=== PATIENT | female | born 1955 | race Caucasian/White ===

== ENCOUNTER 2020-05-13 08:21 | Outpatient (REF) | payer OTHER, SELFPAY ==
--- NOTE | 2020-05-13 08:25 | MM_ITS ---
EXAMINATION: MM SCREENING DIGITAL BREAST TOMOSYNTHESIS, BILATERAL CLINICAL INFORMATION: Screening. Asymptomatic. The lifetime risk of breast cancer based on the Tyrer-Cuzick Model is 10%. COMPARISON: Mammography: 05/08/2019, 06/29/2016, 07/06/2015 TECHNIQUE: Digital breast tomosynthesis is performed in both the craniocaudal and mediolateral oblique views along with computer-aided detection (CAD). Synthesized 2D images are generated from the tomosynthesis. FINDINGS: There are scattered areas of fibroglandular density (ACR BI-RADS breast composition Category b). There are no significant masses, abnormal calcifications, or other abnormalities. Parenchymal pattern is similar to prior studies. No significant changes. MM/MM tomosynthesis screening BI IMPRESSION: No mammographic evidence of malignancy. ASSESSMENT: BI-RADS 1: Negative RECOMMENDATION: Routine annual mammography screening. This patient's information was entered into a reminder system with a target due date for their next mammogram.
== END 2020-05-13 08:22 | disposition home or self-care (01) ==
LOC: HO.MAMMO 08:21
PROVIDERS: Visit Provider Internal Medicine
DX: Z12.31 Encounter for screening mammogram for malignant neoplasm of breast (principal)
CPT/HCPCS: 77063; 77067

== ENCOUNTER 2021-04-23 09:40 | Outpatient (REF) | payer OTHER, SELFPAY ==
--- NOTE | ~2021-04-23 | XR_ITS ---
EXAMINATION: CR SACRUM AND COCCYX CLINICAL INFORMATION: Sacrococcygeal disorders, not elsewhere classified. COMPARISON: Lumbar spine films dated 05/23/2017. Sacroiliac joint films dated 05/23/2017. TECHNIQUE: 3 views of the sacrum and coccyx were obtained. FINDINGS: Evaluation of the sacrum is limited due to overlapping gas and stool filled loops of bowel. No definite acute fracture is seen. The coccyx is intact. Sacroiliac joints bilaterally are intact with mild sclerotic changes on the iliac side of the joints and minimal inferior spurring seen. Pubic symphysis is intact. Included portions of hip joints are unremarkable. Phleboliths are seen in the right lower pelvis. Scattered gas is seen throughout the small and large bowel. XR/XR sacrum coccyx min 2V IMPRESSION: No definite acute fracture of the sacrum or coccyx seen.
== END 2021-04-23 09:41 | disposition home or self-care (01) ==
LOC: HO.HMGCX 09:40
PROVIDERS: PCP Internal Medicine; Visit Provider Physician Assistant
DX: M53.3 Sacrococcygeal disorders, not elsewhere classified (principal)
CPT/HCPCS: 72220

== ENCOUNTER 2021-05-10 06:04 | Outpatient (REF) | payer OTHER, SELFPAY ==
[2021-05-10 11:48] LABS: MANUAL DIFF FLAG NO
[2021-05-10 11:50] LABS: Basophils Absolute Auto 0.1 X10*3/uL (0.0-0.2); Basophils Percent Auto 0.8 % (0-2); Eosinophils Absolute Auto 0.2 X10*3/uL (0.0-0.4); Hematocrit 42.1 % (37.0-47.0); Hemoglobin 13.7 g/dl (12.0-16.0); Imm Gran Abs Auto 0.02 X10*3/uL (0.00-0.03); Imm Gran Pct Auto 0.3 % (0.0-0.4); Lymphocytes Percent Auto 37.9 % (20-40); Mean Corpuscular HGB Conc 32.5 g/dl (31.0-35.0); Mean Corpuscular Hemoglobin 29.7 pg (27.0-33.0); Mean Corpuscular Volume 91.1 fL (80.0-98.0); Mean Platelet Volume 11.1 fL (9.4-12.3); Monocytes Absolute Auto 0.4 X10*3/uL (0.1-1.2); Monocytes Percent Auto 4.6 % (2-11); Neutrophils Absolute Auto 4.3 x10*3/uL (2.0-8.3); Neutrophils Percent Auto 54.4 % (45-73); Platelet Count 306 X10*3/uL (160-400); Red Blood Count 4.62 X10*6/uL (4.20-5.50); White Blood Count 7.9 X10*3/uL (4.8-10.8)
[2021-05-10 12:34] LABS: Alanine Aminotransferase 20 U/L (0-31); Alkaline Phosphatase 105 U/L (39-117); Anion Gap 15 (12-20); Aspartate Amino Transferase 17 U/L (5-31); Bilirubin Total 0.4 mg/dL (0.0-1.0); Blood Urea Nitrogen 7 mg/dL (9-16); Calcium 9.3 mg/dL (8.4-10.2); Carbon Dioxide 24 mmol/L (22-29); Chloride 108 mmol/L (96-108); Cholesterol 122 mg/dL; Estimated Glomerular Filt Rate > 60; Glucose Fasting 90 mg/dL (60-99); HDL Cholesterol 30 mg/dL; LDL Cholesterol Calculated 70 mg/dl; Potassium 4.5 mmol/L (3.3-5.1); Sodium 142 mmol/L (135-145); Total Protein 6.6 g/dL (6.5-8.0); Triglycerides 114 mg/dL
[2021-05-10 12:37] LABS: TSH reflex Free T4 1.53 uIU/mL (0.32-4.0)
== END 2021-05-10 06:05 | disposition home or self-care (01) ==
LOC: HO.HMGCLDS 06:04
PROVIDERS: PCP Internal Medicine; Visit Provider Internal Medicine
DX: E78.9 Disorder of lipoprotein metabolism, unspecified (principal); K59.01 Slow transit constipation; M54.50 Low back pain, unspecified; Z76.89 Persons encountering health services in other specified circumstances
CPT/HCPCS: 36415; 80053; 80061; 84443; 85025

== ENCOUNTER → 2021-05-13 11:18 | Outpatient (BNVA) | payer OTHER, SELFPAY | PROVIDERS: PCP Internal Medicine; Referring Provider Internal Medicine; Visit Provider Nurse Practitioner | DX: D12.6 Benign neoplasm of colon, unspecified (principal); K62.1 Rectal polyp; K57.90 Diverticulosis of intestine, part unspecified, without perforation or abscess without bleeding; E78.00 Pure hypercholesterolemia, unspecified; I25.10 Atherosclerotic heart disease of native coronary artery without angina pectoris; F17.210 Nicotine dependence, cigarettes, uncomplicated; Z80.0 Family history of malignant neoplasm of digestive organs; Z79.82 Long term (current) use of aspirin; Z79.899 Other long term (current) drug therapy | CPT/HCPCS: 99202 ==

== ENCOUNTER → 2021-07-19 12:50 | Outpatient (BNVA) | payer OTHER, SELFPAY | PROVIDERS: PCP Internal Medicine; Referring Provider Internal Medicine; Visit Provider Internal Medicine Cardiovascular Disease | DX: I25.10 Atherosclerotic heart disease of native coronary artery without angina pectoris (principal) | CPT/HCPCS: 93005; 99212 ==

== ENCOUNTER 2021-08-23 06:19 | Day surgery (SDC) | payer OTHER, SELFPAY ==
--- NOTE | 2021-08-22 11:50 | HO.ANESPROP2 ---
Documented by User: Daphney Cortez NP 08/22/21 11:52 HPI - Anesthesia Eval Consult details Narrative: 65yo F for Colonoscopy 06/2021 Routine cardiology visit - stable with PRN cardiac f/u only PMFSH Active Problems Active Problems: All Active Problems (Updated 07/19/21 @ 13:33 by Fredi Camilo MD) CAD (coronary artery disease) (Acute) Family history of colon cancer (Acute) Tubular adenoma of colon (Acute) Establishing care with new doctor, encounter for (Acute) Lipid disorder (Acute) Constipation by delayed colonic transit (Acute) Lower back pain (Acute) Past Medical History Medical History CAD (coronary artery disease) Lipid disorder Smoker Social History Social History Housing: House Patient Tobacco Use Status: Current everyday Tobacco user Tobacco use type: Cigarette Cigarette Packs Per Day: 1 Cigarettes Per Day: 20.0 Years Smoked: 30 years Use of substances other than those prescribed or required for medical reasons: No Advance Directives: No Advance Directives Information Provided: Yes Recently lost weight without trying: No Patient : No Current occupational status: unemployed Meds Allergies Allergy/AdvReac Type Severity Reaction Status Date / Time No Known Allergies Allergy Verified 05/13/21 11:40 Exam Exam Date and Time: August 22, 2021 1150 Narrative Narrative: EKG 06/2021 NSR Assessment and Plan Assessment Anesthesia Assessment: Chart Reviewed Documented by User: Ai Ledesma MD 08/23/21 07:18 PMFSH Past Medical History Medical History CAD (coronary artery disease) Lipid disorder Smoker Functional capacity: independent ambulation Patient : No Family History Family history of problems with anesthesia: No Surgical History History of Problems with Anesthesia: No Social History Social History Housing: House Patient Tobacco Use Status: Current everyday Tobacco user Tobacco use type: Cigarette Cigarette Packs Per Day: 1 Cigarettes Per Day: 20.0 Years Smoked: 30 years Use of substances other than those prescribed or required for medical reasons: No Advance Directives: No Advance Directives Information Provided: Yes Recently lost weight without trying: No Patient : No Current occupational status: unemployed Meds Allergies Allergy/AdvReac Type Severity Reaction Status Date / Time No Known Allergies Allergy Verified 05/13/21 11:40 Exam Airway Mallampati Class: II TM Dist: >3cm Neck ROM: Full Loose/Missing/Broken Teeth: Yes (2 upper incisores) Heart: RRR Lungs: CTA Assessment and Plan Final Anesthetic Review Family History of Problems with Anesthesia: No History of Problems with Anesthesia: No ASA Class: II Final Preanesthetic Review: No Changes in Pt Med Stat, Meds/Allgs Chart Reviewed, Consent Obtained/Reviewed and Anes Risks/Benef Reviewed Patient Risk: Low Procedure Risk: Low Anesthetic Plan Anesthetic Plan: MAC: Disposition: Standard PACU
[2021-08-23 06:32] VITALS: BP 137/87; PULSE 84; RESP 16; TEMP 36.8; O2SAT 96; BMI 22.1
[2021-08-23] MEDS: Lactated Ringers 1,000 ML 100 ML IVCONT (06:49)
--- NOTE | 2021-08-23 07:27 | P.HPSUR_ITS ---
Pre-Procedural Eval Section A Date of Service: 08/23/21 The patient is an INPATIENT: No The History & Physical has been completed within 30 days and I have reviewed it.: No Section B Chief Complaint: screening Details of Present Illness: Colon cancer screening, history of colon polyps family history of colon cancer Relevant Family History (Specify if Yes): Yes Relevant Social History: Tobacco Use Present Medications: see Short Stay Collaborative assessment Medical History: Significant History (Coronary artery disease, chronic c onstipation, low back pain) History of Previous Operations: Relevant previous surgery/procedure and date(s) (History of colonoscopy) Allergies: Allergies Allergy/AdvReac Type Severity Reaction Status Date / Time No Known Allergies Allergy Verified 05/13/21 11:40 Review of Systems Sugical H&P ROS: Negative: Constitution, Cardiovascular and Respiratory and Yes, Specify: Gastrointestinal (constipation) Exam Surgical H&P Exam: Normal: Heart, Normal: Lungs, Normal: Extremities and Normal: Abdomen Plan Diagnosis/Plan: Unchanged I have reviewed the history and physical and performed a pertinent physical examination on my patient. No changes have occurred unless specified.
--- NOTE | 2021-08-23 07:30 | W.PM.OPN ---
Operative Note Operative Note Date of Service: 08/23/21 Narrative: Pre-op diagnosis: Colon cancer screening, history of colon polyps, family history of colon cancer Post-op diagnosis:?other (Colon polyp, diverticulosis, hemorrhoids) Procedure: COLONOSCOPY TILL CECUM WITH BIOPSY Consent: Indications for the procedure and potential complications of bleeding, perforation, reaction to medications and missed diagnosis were discussed with the patient and informed consent was obtained. Instrument: Olympus PCF H 190 L variable stiffness pediatric colonoscope Monitoring: Vital signs and clinical assessment, intermittent blood pressure monitoring, continuous EKG monitoring, Pulse oximetry and Carbon Dioxide monitoring were done throughout the procedure. Colon withdrawl time was 16 minutes. Procedure: The patient was placed in the left lateral decubitis position and pre-procedure medications were administered. After a digital rectal examination of the ano-rectum, the video colonoscope was inserted into the rectum and advanced through the colon to the cecum. The colonoscope was slowly withdrawn in a retrograde panoramic fashion and the colon mucosa was carefully examined including a retroflexed view of the rectum. Findings and interventions are described below. Procedure Difficulty: Without difficulty Findings: Terminal Ileum: Not evaluated Cecum:? Normal Ascending Colon:? A 3-4 mm sessile polyp in mid AC removed with a cold bx Transverse Colon:? Normal Descending Colon:? Moderate diverticulosis Sigmoid Colon:? Severe diverticulosis with luminal narrowing Rectum:? Normal Ano-rectum:? Moderate internal hemorrhoids Colon preparation: Excellent ? Impression and Post Procedure Diagnosis: Colonoscopy Findings: One tiny polyp removed Moderate diverticulosis seen in the left colon Moderate hemorrhoids on retroflexed exam. Plan: Await pathology results Patient has an appointment on 09/19/21 in the GI Clinic with? Malena Cardenas NP. Repeat Colonoscopy interval based on path results - in 5 years if polyps are adenomatous and due to family hx of colon cancer. Above findings were reviewed with the patient and colon polyps and diverticulosis handouts were given in the discharge area Surgeon: Jonas Bacon MD Anesthesia:?MAC (Dr Weldon) Was an Delinquent Tax Collector used for this Procedure?:?Yes Delinquent Tax Collector:?Verito Souza Estimated blood loss (mL):?0 Pathology:?other (A. ascending colon polyp) Condition:?stable Disposition:?PACU
[2021-08-23 08:22] VITALS: BP 121/66; PULSE 66; RESP 16; TEMP 37.1; O2SAT 98
[2021-08-23 08:37] VITALS: BP 131/75; PULSE 67; RESP 18; TEMP 36.7; O2SAT 98
--- NOTE | 2021-08-23 12:25 | HO.POSTANES ---
Post Anesthesia Evaluation Post Anesthesia Evaluation Vital Signs: Vital Signs Temp Pulse Resp BP Pulse Ox 08/23/21 08:37 98.0 F 67 18 131/75 98 08/23/21 08:22 98.8 F 66 16 121/66 98 08/23/21 06:32 98.2 F 84 16 137/87 96 Anesthesia: Monitored Mental Status: Awake Pain Control: Satisfactory Nausea/Vomiting: None Hydration: Adequate Anesthesia-Related Issues: No Anes. Related Issues
== END 2021-08-23 09:02 | disposition home or self-care (01) ==
PROVIDERS: PCP Internal Medicine; Visit Provider Internal Medicine Gastroenterology
PROC: 0DJD8ZZ Inspection of Lower Intestinal Tract, Via Natural or Artificial Opening Endoscopic (ICD-10-PCS; CPT 45378; principal; 2021-08-23 07:30)
DX: Z12.11 Encounter for screening for malignant neoplasm of colon (principal); Z86.010 Personal history of colon polyps; Z80.0 Family history of malignant neoplasm of digestive organs; D12.2 Benign neoplasm of ascending colon; K57.30 Diverticulosis of large intestine without perforation or abscess without bleeding; K64.8 Other hemorrhoids; I25.10 Atherosclerotic heart disease of native coronary artery without angina pectoris; F17.210 Nicotine dependence, cigarettes, uncomplicated; E78.00 Pure hypercholesterolemia, unspecified
CPT/HCPCS: 45380; 88305

== ENCOUNTER 2021-09-06 07:50 | Outpatient (REF) | payer OTHER, SELFPAY ==
--- NOTE | ~2021-09-06 | MM_ITS ---
EXAMINATION: MM SCREENING DIGITAL BREAST TOMOSYNTHESIS, BILATERAL CLINICAL INFORMATION: Screening. Asymptomatic. The lifetime risk of breast cancer based on the Tyrer-Cuzick Model is 13%. COMPARISON: Mammography: 05/13/2020, 05/08/2019, 06/29/2016 TECHNIQUE: Digital breast tomosynthesis is performed in both the craniocaudal and mediolateral oblique views along with computer-aided detection (CAD). Synthesized 2D images are generated from the tomosynthesis. FINDINGS: There are scattered areas of fibroglandular density (ACR BI-RADS breast composition Category b). There are no significant masses, abnormal calcifications, or other abnormalities. Parenchymal pattern is similar to prior studies. There is no developing density or architectural abnormality. The axilla and skin contours are unremarkable. No significant changes. MM/MM tomosynthesis screening BI IMPRESSION: No mammographic evidence of malignancy. ASSESSMENT: BI-RADS 1: Negative RECOMMENDATION: Routine annual mammography screening. This patient's information was entered into a reminder system with a target due date for their next mammogram.
== END 2021-09-06 07:51 | disposition home or self-care (01) ==
LOC: HO.MAMMO 07:50
PROVIDERS: Visit Provider Internal Medicine
DX: Z12.31 Encounter for screening mammogram for malignant neoplasm of breast (principal)
CPT/HCPCS: 77063; 77067

== ENCOUNTER → 2021-09-30 10:16 | Outpatient (BNVA) | payer OTHER, SELFPAY | PROVIDERS: PCP Internal Medicine; Referring Provider Internal Medicine; Visit Provider Nurse Practitioner | DX: D12.6 Benign neoplasm of colon, unspecified (principal); Z80.0 Family history of malignant neoplasm of digestive organs | CPT/HCPCS: 99212 ==

== ENCOUNTER 2021-11-23 08:44 | Outpatient (REF) | payer MEDICARE, SELFPAY ==
[2021-11-26 13:02] LABS: HPV mRNA E6/E7 rflx Not Detected (Not Detected)
== END 2021-11-23 08:45 | disposition home or self-care (01) ==
LOC: HO.LAB 08:44
PROVIDERS: PCP Internal Medicine; Visit Provider Advanced Practice Midwife
DX: Z01.419 Encounter for gynecological examination (general) (routine) without abnormal findings (principal); Z11.51 Encounter for screening for human papillomavirus (HPV)
CPT/HCPCS: 87624; 88142

== ENCOUNTER 2022-02-01 06:02 | Outpatient (REF) | payer MEDICARE, SELFPAY ==
[2022-02-01 11:17] LABS: MANUAL DIFF FLAG NO
[2022-02-01 11:29] LABS: Basophils Absolute Auto 0.1 X10*3/uL (0.0-0.2); Basophils Percent Auto 0.8 % (0-2); Eosinophils Absolute Auto 0.2 X10*3/uL (0.0-0.4); Eosinophils Percent Auto 1.9 % (0-4); Hematocrit 43.1 % (37.0-47.0); Hemoglobin 14.2 g/dl (12.0-16.0); Imm Gran Abs Auto 0.03 X10*3/uL (0.00-0.03); Imm Gran Pct Auto 0.3 % (0.0-0.4); Lymphocytes Absolute Auto 3.9 X10*3/uL (1.2-4.9); Lymphocytes Percent Auto 42.4 % (20-40); Mean Corpuscular HGB Conc 32.9 g/dl (31.0-35.0); Mean Corpuscular Hemoglobin 30.5 pg (27.0-33.0); Mean Corpuscular Volume 92.7 fL (80.0-98.0); Mean Platelet Volume 10.6 fL (9.4-12.3); Monocytes Absolute Auto 0.5 X10*3/uL (0.1-1.2); Monocytes Percent Auto 4.9 % (2-11); Neutrophils Absolute Auto 4.6 x10*3/uL (2.0-8.3); Neutrophils Percent Auto 49.7 % (45-73); Platelet Count 334 X10*3/uL (160-400); Red Blood Count 4.65 X10*6/uL (4.20-5.50); Red Cell Distribution Width 14.3 % (11.0-16.0); White Blood Count 9.3 X10*3/uL (4.8-10.8)
[2022-02-01 11:51] LABS: Alanine Aminotransferase 26 U/L (0-31); Albumin Level 4.1 g/dL (3.5-5.0); Alkaline Phosphatase 104 U/L (39-117); Anion Gap 13 (12-20); Aspartate Amino Transferase 22 U/L (5-31); Bilirubin Total 0.4 mg/dL (0.0-1.0); Blood Urea Nitrogen 16 mg/dL (9-16); Calcium 9.4 mg/dL (8.4-10.2); Carbon Dioxide 23 mmol/L (22-29); Chloride 109 mmol/L (96-108); Cholesterol 141 mg/dL; Estimated Glomerular Filt Rate > 60; Glucose Fasting 102 mg/dL (60-99); HDL Cholesterol 42 mg/dL; LDL Cholesterol Calculated 75 mg/dl; Potassium 4.2 mmol/L (3.3-5.1); Sodium 141 mmol/L (135-145); Total Protein 6.8 g/dL (6.5-8.0); Triglycerides 124 mg/dL
[2022-02-01 12:13] LABS: TSH reflex Free T4 1.94 uIU/mL (0.32-4.0)
== END 2022-02-01 06:03 | disposition home or self-care (01) ==
LOC: HO.HMGCLDS 06:02
PROVIDERS: PCP Internal Medicine; Visit Provider Internal Medicine
DX: Z00.01 Encounter for general adult medical examination with abnormal findings (principal); I25.10 Atherosclerotic heart disease of native coronary artery without angina pectoris
CPT/HCPCS: 36415; 80053; 80061; 84443; 85025

== ENCOUNTER 2022-03-06 14:01 | Outpatient (REF) | payer MEDICARE, SELFPAY ==
--- NOTE | ~2022-03-06 | US_ITS ---
EXAMINATION: US VENOUS ULTRASOUND WITH DOPPLER LOWER EXTREMITY, LEFT CLINICAL INFORMATION: M79.605 - Pain in left leg. Assess for occult DVT. COMPARISON: None TECHNIQUE: Ultrasound of the deep veins is performed from the hip to the calf with compression sonography and color and pulse Doppler assessment. Spectral analysis with color-flow imaging is performed. FINDINGS: There is normal venous compression and respiratory variation and augmented flow. The visualized common femoral vein, superficial femoral vein, profunda femoral vein, popliteal vein, and the trifurcation region shows no evidence of deep venous thrombosis. No popliteal fossa cyst. At time of imaging, patient noted palpable concern lower lateral calf. Additional imaging targeted to this area demonstrates subtle nonspecific circumscribed spindle-shaped nodule measuring 1.2 x 0.3 x 1.0 cm. The lesion resides just beneath the skin with long axis parallel with the skin. No increased or decreased through transmission of sound. No associated color flow. US/US venous duplex LE IMPRESSION: -Patient notes palpable concern lower lateral calf. Ultrasound demonstrates nonspecific spindle-shaped nodule anterior superficial soft tissues measuring 1.2 x 0.3 x 1.0 cm. This could be further characterized with MRI without and with gadolinium contrast. -No DVT demonstrated in the left lower extremity.
== END 2022-03-06 14:02 | disposition home or self-care (01) ==
LOC: HO.US 14:01
PROVIDERS: PCP Internal Medicine; Visit Provider Internal Medicine
DX: M79.605 Pain in left leg (principal)
CPT/HCPCS: 93971

== ENCOUNTER → 2022-03-20 09:35 | Outpatient (BNVA) | payer MEDICARE, SELFPAY | PROVIDERS: PCP Internal Medicine; Visit Provider Physician Assistant | DX: D17.9 Benign lipomatous neoplasm, unspecified (principal) | CPT/HCPCS: 99202 ==

== ENCOUNTER 2022-09-12 07:36 | Outpatient (REF) | payer MEDICARE, SELFPAY ==
--- NOTE | ~2022-09-12 | MM_ITS ---
EXAMINATION: MM SCREENING DIGITAL BREAST TOMOSYNTHESIS, BILATERAL CLINICAL INFORMATION: Screening. Asymptomatic. The lifetime risk of breast cancer based on the Tyrer-Cuzick Model is 10%. COMPARISON: Mammography: 09/06/2021, 05/13/2020, 05/08/2019 TECHNIQUE: Digital breast tomosynthesis is performed in both the craniocaudal and mediolateral oblique views along with computer-aided detection (CAD). Synthesized 2D images are generated from the tomosynthesis. Additional right CC view is provided. FINDINGS: There are scattered areas of fibroglandular density (ACR BI-RADS breast composition Category b). There are no significant masses, abnormal calcifications, or other abnormalities. No architectural abnormality or developing density or significant change from prior studies. The axilla and skin contours are unremarkable. MM/MM tomosynthesis screening BI IMPRESSION: No mammographic evidence of malignancy. ASSESSMENT: BI-RADS 1: Negative RECOMMENDATION: Routine annual mammography screening. This patient's information was entered into a reminder system with a target due date for their next mammogram.
== END 2022-09-12 07:37 | disposition home or self-care (01) ==
LOC: HO.MAMMO 07:36
PROVIDERS: PCP Internal Medicine; Visit Provider Internal Medicine
DX: Z12.31 Encounter for screening mammogram for malignant neoplasm of breast (principal)
CPT/HCPCS: 77063; 77067

== ENCOUNTER 2022-10-19 06:05 | Outpatient (REF) | payer MEDICARE, SELFPAY ==
[2022-10-19 12:36] LABS: Alanine Aminotransferase 23 U/L (0-31); Alkaline Phosphatase 123 U/L (39-117); Anion Gap 12 (12-20); Aspartate Amino Transferase 20 U/L (5-31); Bilirubin Total 0.6 mg/dL (0.0-1.0); Blood Urea Nitrogen 9 mg/dL (9-16); Calcium 9.5 mg/dL (8.4-10.2); Carbon Dioxide 25 mmol/L (22-29); Chloride 110 mmol/L (96-108); Cholesterol 129 mg/dL; Estimated Glomerular Filt Rate > 60; Glucose Fasting 103 mg/dL (60-99); HDL Cholesterol 28 mg/dL; LDL Cholesterol Calculated 78 mg/dl; Potassium 4.6 mmol/L (3.3-5.1); Sodium 142 mmol/L (135-145); Total Protein 6.5 g/dL (6.5-8.0); Triglycerides 116 mg/dL
== END 2022-10-19 06:06 | disposition home or self-care (01) ==
LOC: HO.HMGCLDS 06:05
PROVIDERS: PCP Internal Medicine; Visit Provider Internal Medicine
DX: E78.9 Disorder of lipoprotein metabolism, unspecified (principal); I25.10 Atherosclerotic heart disease of native coronary artery without angina pectoris; R73.01 Impaired fasting glucose; F17.200 Nicotine dependence, unspecified, uncomplicated
CPT/HCPCS: 36415; 80053; 80061

== ENCOUNTER 2022-12-28 10:00 | Outpatient (REF) | payer MEDICARE, SELFPAY | END 2022-12-28 10:01 | disposition home or self-care (01) | LOC: HO.HMGCLDS 10:00 | PROVIDERS: PCP Internal Medicine; Visit Provider Internal Medicine | DX: E78.9 Disorder of lipoprotein metabolism, unspecified (principal); R79.89 Other specified abnormal findings of blood chemistry | CPT/HCPCS: 36415; 80076 ==

== ENCOUNTER 2023-01-05 08:56 | Outpatient (AMB) | payer MEDICARE, SELFPAY ==
--- NOTE | 2023-01-05 09:01 | MHC.OFFVIS ---
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 Scribed for FELIX Cerda by Areli Marie medical administrator, on 01/05/2023 at 9:15 am EST Casualty Claims Supervisor Required: No Information Interpreted: non-clinical & clinical Route Driver: Route Driver Present (Beverly) Allergies No Known Allergies Allergy (Verified 01/05/23 09:05) Is last menstrual period known: No Post menopausal: Yes HPI HPI Comments History of Present Illness Details She is a postmenopausal woman presenting for annual exam. Doing well with no certified health education specialist concerns. She attempts to eat a healthy diet including Calcium and Vitamin D. She stays active with swimming. Currently sexually active. Denies vaginal itching and irritation. STD screening offered; she declines. Family hx of breast cancer in sister and niece and colon cancer in father. Has not done genetic testing. Last pap smear 2021. Last mammogram 09/12/22. UTD on colonoscopy. Current everyday smoker, is not interested in quitting. PFSH Medical History CAD (coronary artery disease) Lipid disorder Smoker Surgical History H/O colonoscopy Hx of tubal ligation Family History Father Colon cancer Sister Breast cancer Family/Other Breast cancer Social History Housing: House Patient Tobacco Use Status: Current everyday Tobacco user Tobacco use type: Cigarette Cigarette Packs Per Day: 1 Cigarettes Per Day: 20.0 Years Smoked: 30 years e-Cigarette/Vaping Use: Never Used Current occupational status: unemployed Cognitive needs: No Hearing needs: No Vision needs: Yes Female Reproductive History Menstrual Age of Menarche: 13 control method: permanent sterilization Total pregnancies: 2 Full term: 2 Number of Living Children: 2 Date of last pap smear: 11/24/21 (negative) Date of Mammogram: 09/12/22 Review of Systems Const All systems reviewed & are unremarkable except as noted in HPI and below Physical Exam Vital Signs: Last Vital Signs BP 138/60 01/05/23 09:03 BMI result Body Mass Index 20.9 Const General: cooperative, healthy appearing, no acute distress, well developed and alert Orientation/consciousness: patient oriented x3 HEENT Head: Yes normal to inspection Eyes General: appearance normal, both eyes and all related structures Neck Neck: Yes normal visual inspection Thyroid: Thyroid normal Chest Chest palpation & inspection: normal inspection of the chest Breast/axilla inspection: normal inspection of the breasts (no puckering, dimpling, peau de orange, retraction, discharge, masses) Breast/axilla palpation: normal palpation of the breasts Resp Effort & Inspection: normal respiratory effort GI Inspection: Yes normal to inspection Palpation (GI): Soft to palpation Rectal Exam - Female: deferred General: Yes bladder normal to palpation External Female Exam: normal external appearance and normal appearance of the urethra Speculum Exam - Vagina: normal appearance of the vagina, normal palpation, normal vaginal discharge and vagina atrophic Speculum Exam - Cervix: normal appearance of the cervix, normal palpation and Other cervical findings present (atrophic changes) Bimanual exam- vagina & uterus: normal bimanual exam, normal palpation, uterine size normal, bladder normal to palpation and normal palpation Bimanual Exam- Adnexa, other: normal adnexae and no masses Skin General skin exam: no rashes or lesions noted Neuro General: patient oriented x3 Cognition (Neuro): normal cognition Extrem General: Yes normal to inspection Psych Attitude: cooperative Thought process: Normal thought process present Assessment & Plan Assessment & Plan (1) Encounter for well woman exam: Code(s): Z01.419 - Encounter for gynecological examination (general) (routine) without abnormal findings Plan: Discussed: Current recommendations for pap smears per ASCCP guidelines. Breast awareness and periodic self breast exams. Encouraged yearly mammograms. Maintaining a healthy lifestyle including a well balanced diet including Calcium and Vitamin D and routine exercise. Discussed BRCA testing, she is undecided at this time. Contact office with any PMB. All of her questions and concerns were addressed to the best of my ability. RTO in one year for AG. (2) Tobacco use: Code(s): Z72.0 - Tobacco use Plan: Encouraged cessation. Coding Level of Care Code Est Pt Prev Care >65y(76339) Diagnoses Encounter for well woman exam Z01.419 Tobacco use Z72.0
[2023-01-05 09:03] VITALS: BP 138/60; BMI 20.9
== END 2023-01-05 09:18 | disposition home or self-care (01) ==
LOC: HO.HWS 08:56
PROVIDERS: PCP Internal Medicine; Visit Provider Advanced Practice Midwife
DX: Z01.419 Encounter for gynecological examination (general) (routine) without abnormal findings (principal); Z72.0 Tobacco use
CPT/HCPCS: 99397

== ENCOUNTER → 2023-01-05 08:56 | Outpatient (BNVA) | payer MEDICARE, SELFPAY | PROVIDERS: PCP Internal Medicine; Visit Provider Advanced Practice Midwife ==

== ENCOUNTER 2023-04-30 06:02 | Outpatient (REF) | payer MEDICARE, SELFPAY ==
[2023-04-30 11:38] LABS: Alanine Aminotransferase 15 U/L (0-31); Albumin Level 3.9 g/dL (3.5-5.0); Alkaline Phosphatase 103 U/L (39-117); Anion Gap 11 (12-20); Aspartate Amino Transferase 19 U/L (5-31); Bilirubin Total 0.4 mg/dL (0.0-1.0); Blood Urea Nitrogen 15 mg/dL (9-16); Calcium 9.2 mg/dL (8.4-10.2); Carbon Dioxide 25 mmol/L (22-29); Chloride 108 mmol/L (96-108); Cholesterol 127 mg/dL (<200); Estimated Glomerular Filt Rate > 60; Glucose Fasting 90 mg/dL (60-99); HDL Cholesterol 33 mg/dL (>40); LDL Cholesterol Calculated 83 mg/dL (<100); Potassium 3.9 mmol/L (3.3-5.1); Sodium 140 mmol/L (135-145); Total Protein 6.7 g/dL (6.5-8.0); Triglycerides 58 mg/dL (<150)
[2023-04-30 11:42] LABS: Estimated Average Glucose 108 mg/dL; Hemoglobin A1c % 5.4 % (<6.0)
== END 2023-04-30 06:03 | disposition home or self-care (01) ==
LOC: HO.HMGCLDS 06:02
PROVIDERS: PCP Internal Medicine; Visit Provider Internal Medicine
DX: E78.9 Disorder of lipoprotein metabolism, unspecified (principal); R79.89 Other specified abnormal findings of blood chemistry; K59.09 Other constipation; F17.200 Nicotine dependence, unspecified, uncomplicated
CPT/HCPCS: 36415; 80053; 80061; 83036

== ENCOUNTER 2023-05-01 09:18 | Outpatient (AMB) | payer MEDICARE, SELFPAY ==
[2023-05-01 09:26] VITALS: BP 130/74; PULSE 74; O2SAT 98; BMI 21.8
--- NOTE | 2023-05-01 09:26 | A.OFFPC_ITS ---
Vital Signs 3 05/01/23 09:26 Height 5 ft 2 in Weight 119 lb 6 oz BMI 21.8 BP 130/74 Blood Pressure Location Lt brachial Position Sitting Pulse 74 Pulse Source Pulse Oximeter Pulse Oximetry (%) 98 Oxygen Delivery Method Room Air Intake Visit Reasons: 6 Month follow up Allergies No Known Allergies Allergy (Verified 05/01/23 09:27) Medication List - Last Reviewed 05/01/23 by Chi Angel MA aspirin (Adult Low Dose Aspirin) 81 mg PO DAILY 90 days atorvastatin 80 mg PO QPM Tobacco use date assessed: 05/01/23 Fall risk assessment: No Falls in past year Last assessed Fall Risk: 05/01/23 Dental Screening Dental Screen Date: 05/01/23 Did you have a dental visit in the last 12 months?: No Did you have a dental problem in the last 6 months where you did not have access to dental care?: No Was dental information given to patient?: Patient has dentist HPI 6 Month follow up 2 HPI0 Details Patient is 67-year-old female came in today for six-month follow-up appointment Complaining of mid back pain, patient says that she is taking care of 1-year-old at home it could be because she picks her up frequently She also have a pain in right hip area nonradiating I have ordered bone density I do not see any bone density done in past 3 years Patient is flying to a room by in August she has fear of flying and is requesting few tablets of Xanax 0.25 mg which I have sent for her Lipid disorder: Patient is taking atorvastatin 80 mg Labs done recently reviewed with the patient LDL is within reasonable control. Patient also have impaired fasting sugar, she is controlling her diet and maintaining her ideal BMI Continued to smoke, 1 pack per day, trying to quit Help offered, patient says that she does not need any help at this time Follow-up 6 months labs are needed before visit fasting PFSH Medical History Smoker CAD (coronary artery disease) Lipid disorder Surgical History Hx of tubal ligation H/O colonoscopy Family History Father Colon cancer Sister Breast cancer Family/Other Breast cancer Social History Housing: House Patient Tobacco Use Status: Current everyday Tobacco user Tobacco use type: Cigarette Cigarette Packs Per Day: 1 Cigarettes Per Day: 20.0 Years Smoked: 30 years e-Cigarette/Vaping Use: Never Used Current occupational status: unemployed Cognitive needs: No Hearing needs: No Vision needs: Yes Female Reproductive History Menstrual Age of Menarche: 13 Questionnaire PHQ-9 Over the last 2 weeks, how often have you been bothered by any of the following problems? 1. Little interest or pleasure in doing things: not at all 2. Feeling down, depressed, or hopeless: not at all 3. Trouble falling or staying asleep, or sleeping too much: not at all 4. Feeling tired or having little energy: not at all 5. Poor appetite or overeating: not at all 6. Feeling bad about yourself - or that you are a failure or have let yourself or your family down: not at all 7. Trouble concentrating on things, such as reading the newspaper or watching television: not at all 8. Moving or speaking so slowly that other people could have noticed. Or the opposite - being so fidgety or restless that you have been moving around a lot more than usual: not at all 9. Thoughts that you would be better off or of hurting yourself in some way: not at all Total score: 0 Depression Screening Interpretation: Negative Depression Screening Done: Yes 65766 - PHQ-9 Billing: Yes Source: Developed by Drs. Justo Moise, Deana Zapata, Marc Stearns and colleagues, with an educational alex from [employer]. Thrive Questionnaire Date Thrive assessed: 10/27/22 AUDIT C Alcohol Use Questionnaire (AUDIT-C) 1. How often do you have a drink containing alcohol?: 2-4 times a month 2. How many drinks containing alcohol do you have on a typical day when you are drinking?: 3 or 4 3. How often do you have six or more drinks on one occasion?: Never Total Score: 3 Score Reviewed/Action Taken: Yes CORNELIA-7 AMB Questionnaire CORNELIA-7 Date CORNELIA - 7 assessed: 05/01/23 Feeling nervous, anxious, or on edge: 0 = Not at all Not being able to stop or control worryin = Not at all Worrying too much about different things: 0 = Not at all Trouble relaxin = Not at all Being so restless that it is hard to sit still: 0 = Not at all Becoming easily annoyed or irritable: 0 = Not at all Feeling afraid as if something awful might happen: 0 = Not at all Total CORNELIA-7 score (0-4 normal; 5-9 mild; 10-14 moderate; 15-21 severe): 0 Source: Developed by Drs. Justo Moise, Deana Zapata, Marc Stearns and colleagues, with an educational alex from [employer]. CORNELIA-7 Assessment Billing CORNELIA-7 Assessment Tool: CORNELIA-7 Assessment 59115 Review of Systems Const Denies chills and Denies fever(s) ENT Denies epistaxis and Denies nasal discharge Card Denies chest pain Resp Denies chest congestion, Denies cough and Denies hemoptysis GI Denies diarrhea and Denies nausea Skin/Breast Denies rash Neuro Reports no additional complaints Psych Reports no additional complaints Endo Reports no additional complaints Physical exam (Primary Care) Vital Signs: Last Vital Signs Pulse 74 05/01/23 09:26 BP 130/74 05/01/23 09:26 Pulse Ox 98 05/01/23 09:26 Oxygen Delivery Method Room Air 05/01/23 09:26 BMI result Body Mass Index 21.8 Tobacco/Smoking Status: Tobacco use Status Tobacco use date assessed 05/01/23 05/01/23 09:27 Patient Tobacco Use Status Current everyday Tobacco 05/01/23 09:27 Tobacco use type Cigarette 05/01/23 09:27 e-Cigarette/Vaping Use Never Used 05/01/23 09:27 Are you ready to quit: No Relapse Prevention: discussed the importance of a supportive environment CPT code: 98720 - 4-10 Minutes PHQ-9: PHQ-9 Score PHQ-9: Total score 0 05/01/23 09:48 Depression Screening Interpretation: Negative Thrive Assessment: Date of Thrive Assessment Date Thrive assessed 10/27/22 05/01/23 09:27 Const General: cooperative, comfortable and no acute distress Orientation/consciousness: patient oriented x3 HENMT Head: Yes normocephalic Eyes General: appearance normal, both eyes and all related structures Neck Neck: Yes supple Resp Effort & Inspection: normal respiratory effort, no cough and no stridor Cardio Rhythm: regular rhythm Heart sounds: S1 normal heart sound present and S2 normal heart sound present Back/Spine/Pelvis Back/spine/pelvis image: 2 1. No pain with percussion site of pain 2. Discomfort but no pain with percussion range of motion intact 3. Hip with full range of motion Skin General skin exam: turgor normal Neuro General: patient oriented x3, tone normal and moves all extremities Extrem Right lower extremity: no edema Left lower extremity: no edema Assessment and Plan Assessment & Plan (1) Lipid disorder: Code(s): E78.9 - Disorder of lipoprotein metabolism, unspecified (2) Impaired fasting blood sugar: Code(s): R73.01 - Impaired fasting glucose (3) Chronic constipation: Code(s): K59.09 - Other constipation (4) Tobacco dependence: Code(s): F17.200 - Nicotine dependence, unspecified, uncomplicated (5) Lower back pain: Code(s): M54.50 - Low back pain, unspecified Qualifiers: Chronicity: chronic Back pain laterality: midline Sciatica presence: w ithout sciatica Qualified Code(s): M54.50 - Low back pain, unspecified; G89.29 - Other chronic pain (6) Mid back pain: Code(s): M54.9 - Dorsalgia, unspecified (7) Right hip pain: Code(s): M25.551 - Pain in right hip (8) 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 - Fear of flying Plan Patient is 67-year-old female came in today for six-month follow-up appointment Complaining of mid back pain, patient says that she is taking care of 1-year-old at home it could be because she picks her up frequently She also have a pain in right hip area nonradiating I have ordered bone density I do not see any bone density done in past 3 years Patient is flying to a room by in August she has fear of flying and is requesting few tablets of Xanax 0.25 mg which I have sent for her Lipid disorder: Patient is taking atorvastatin 80 mg Labs done recently reviewed with the patient LDL is within reasonable control. Patient also have impaired fasting sugar, she is controlling her diet and maintaining her ideal BMI Continued to smoke, 1 pack per day, trying to quit Help offered, patient says that she does not need any help at this time Follow-up 6 months labs are needed before visit fasting Orders: Orders 2 Complete Blood Count Auto Diff Today E78.9 - Disorder of lipoprotein metabolism, unspecified, F17.200 - Nicotine dependence, unspecified, uncomplicated, K59.09 - Other constipation, R73.01 - Impaired fasting glucose Lipid Panel 6 Months E78.9 - Disorder of lipoprotein metabolism, unspecified, F17.200 - Nicotine dependence, unspecified, uncomplicated, K59.09 - Other constipation, R73.01 - Impaired fasting glucose Comprehensive [place]. Panel Fast Today E78.9 - Disorder of lipoprotein metabolism, unspecified, F17.200 - Nicotine dependence, unspecified, uncomplicated, K59.09 - Other constipation, R73.01 - Impaired fasting glucose XR DEXA axial skeleton Today F17.200 - Nicotine dependence, unspecified, uncomplicated, M54.50 - Low back pain, unspecified, Z78.0 - Asymptomatic menopausal state Medications: New 2 alprazolam 0.25 mg PO DAILY PRN 14 tabs 0RF anxiety 15 days Coding Level of Care Code Est Pt Level 4 (67604) Diagnoses Lipid disorder E78.9 Impaired fasting blood sugar R73.01 Chronic constipation K59.09 Tobacco dependence F17.200 Chronic midline low back pain without sciatica M54.50; G89.29 Chronicity: chronic Back pain laterality: midline Sciatica presence: without sciatica Mid back pain M54.9 Right hip pain M25.551 Fear of flying F40.243 Additional Codes CORNELIA-7 Assessment Billing - CORNELIA-7 Assessment Tool: CORNELIA-7 Assessment 75056 ([id number]) Vital Signs *Quality* - CPT code: 55199 - 4-10 Minutes ([id number])
== END 2023-05-01 15:57 | disposition home or self-care (01) ==
PROVIDERS: Visit Provider Internal Medicine
DX: E78.9 Disorder of lipoprotein metabolism, unspecified (principal); R73.01 Impaired fasting glucose; K59.09 Other constipation; F17.210 Nicotine dependence, cigarettes, uncomplicated; M54.50 Low back pain, unspecified; G89.29 Other chronic pain; M54.9 Dorsalgia, unspecified; M25.551 Pain in right hip; F40.243 Fear of flying
CPT/HCPCS: 99214

== ENCOUNTER 2023-09-04 08:02 | Outpatient (AMB) | payer MEDICARE, SELFPAY ==
[2023-09-04 08:13] VITALS: BP 142/80; PULSE 76; TEMP 36.7; O2SAT 98
--- NOTE | 2023-09-04 08:13 | MHC.OFFWIV ---
Intake Vital Signs 09/04/23 08:13 Height 5 ft 3 in BP 142/80 H Blood Pressure Location Lt brachial Position Sitting Pulse 76 Pulse Source Pulse Oximeter Temp 98.1 F Temp Source Oral Pulse Oximetry (%) 98 Oxygen Delivery Method Room Air Intake Visit Reasons: EP rash RT arm back of head 1 month (lobby) Intake Note: pt has a rash under right elbow and has a rash on the back of her for a few months pt says it is itchy and red on her elbow and her head has been itchy and flaky Patient Tobacco Use Status: Current everyday Tobacco user Allergies No Known Allergies Allergy (Verified 09/04/23 08:15) HPI HPI Comments History of Present Illness Details Patient is a 67yo F who presents to office with rash Rash started on L arm months ago and resolved Shes had lesions to R arm x 1 month and similar skin irritation to posterior R scalp No drainage, discharge, pain, 0/10, fevers or chills Denies rash elsewhere She said it is red, raised, itchy Has tried herbal remedies without relief PFSH Medical History Smoker CAD (coronary artery disease) Lipid disorder Surgical History Hx of tubal ligation H/O colonoscopy Family History Father Colon cancer Sister Breast cancer Family/Other Breast cancer Social History Housing: House Patient Tobacco Use Status: Current everyday Tobacco user Tobacco use type: Cigarette Cigarette Packs Per Day: 1 Cigarettes Per Day: 20.0 Years Smoked: 30 years e-Cigarette/Vaping Use: Never Used Current occupational status: unemployed Cognitive needs: No Hearing needs: No Vision needs: Yes Female Reproductive History Menstrual Age of Menarche: 13 Review of Systems Const Denies chills, Denies fatigue and Denies fever(s) ENT Denies sore throat Card Denies chest pain Resp Denies cough Musc Denies myalgias Skin/Breast Reports erythema and Reports rash Endo Denies fatigue Physical Exam Vital Signs: Last Vital Signs Temp 98.1 F 09/04/23 08:13 Pulse 76 09/04/23 08:13 BP 142/80 H 09/04/23 08:13 Pulse Ox 98 09/04/23 08:13 Oxygen Delivery Method Room Air 09/04/23 08:13 General: Non-toxic, NAD. Speaking full sentences. Skin: Warm dry throughout. R forearm just distal to antecubital fossa pt has slightly raised patch of erythematous dry skin approx 2cm x 6cm. No drainage. vesicles or pain to palpation. Similar linear erythematous plaque to R occipital scalp. Eye: EOMI Respiratory: No respiratory distress MSK: Full ROM extremities. Neurology: A/O. No aphasia or facial droop. Gait without abnormality Psych: Good mood and affect Assessment & Plan Assessment & Plan (1) Contact dermatitis: Code(s): L25.9 - Unspecified contact dermatitis, unspecified cause Qualifiers: Contact dermatitis trigger: unspecified trigger Contact dermatitis type: irritant Qualified Code(s): L24.9 - Irritant contact dermatitis, unspecified cause Plan: Pt seen and evaluated Hydrocortisone for R forearm as discussed; avoid eyes, face, genitals and wash hands after applicaton Steroid shampoo for scalp. Patient gave verbal understanding and had no additional questions or concerns at time of discharge All questions answered Medications: New hydrocortisone 2.5% 1 appl topical BID 1 week 30 grams 0RF clobetasol 0.05% apply to area of scalp affected x 2 weeks. Leave in x 15 minutes then rinse off. Avoid groin, axilla, eyes 1 appl topical DAILY 2 weeks 25 mL 0RF Coding Level of Care Code Est Pt Level 3 (30269) Diagnoses Irritant contact dermatitis, unspecified trigger L24.9 Contact dermatitis trigger: unspecified trigger Contact dermatitis type: irritant
== END 2023-09-04 10:07 | disposition home or self-care (01) ==
PROVIDERS: PCP Internal Medicine; Visit Provider Physician Assistant
DX: L24.9 Irritant contact dermatitis, unspecified cause (principal)
CPT/HCPCS: 99213

== ENCOUNTER 2023-09-14 07:58 | Outpatient (REF) | payer MEDICARE, SELFPAY ==
--- NOTE | ~2023-09-14 | MM_ITS ---
EXAMINATION: BONE DENSITOMETRY CLINICAL INDICATION: Nicotine dependence, unspecified, uncomplicated. COMPARISON: Baseline BD dated 06/21/2017. TECHNIQUE: Using a [employer] DXA System (software version: 13.1) manufactured by [employer], dual-energy x-ray absorptiometry was performed of the lumbar spine and left hip. The images are of good technical quality. Summary results are attached. FINDINGS: AP SPINE L1-L4: Current: BMD 0.923 g/cm2, Z-score -0.1, T-score -2.1, osteopenia, 8.7% decrease from baseline (<5% change is not significant). Baseline: BMD 1.011 g/cm2. LEFT FEMUR, NECK: Current: BMD 0.667 g/cm2, Z-score -0.9, T-score -2.7, osteoporosis. Baseline: BMD 0.893 g/cm2. LEFT FEMUR, TOTAL: Current: BMD 0.695 g/cm2, Z-score -0.9, T-score -2.5, osteoporosis, 27.2% decrease from baseline (<5% change is not significant). Baseline: BMD 0.955 g/cm2. IDENTIFIED RISK FACTORS: Current smoker. Menopause. HISTORY OF FRACTURE: None listed. MEDICATIONS: None listed. MM/XR DEXA axial skeleton IMPRESSION: 1. DIAGNOSIS: Osteoporosis based on the lowest T-score value of -2.7 in the femoral neck applying World Health Organization criteria. 2. 10-YEAR FRACTURE RISK PREDICTION, FRAX: According to the guidelines, FRAX calculation should only be performed on patients in the osteopenia bone density category.?Therefore, FRAX was not performed on this patient.? 3. Treatment Recommendations: NOF guidelines recommend consideration for treatment in postmenopausal women and men age 50 and older presenting with the following: -A hip or vertebral (clinical or morphometric) fracture. -T-score less than or equal to -2.5 at the femoral neck or spine after appropriate evaluation to exclude secondary causes. -Low bone mass at the hip or spine and a 10-year fracture probability by FRAX of greater than or equal to 3% for hip fracture or greater than or equal to 20% for major osteoporotic fracture based on the [place] adapted WHO algorithm. 4. Other Recommendations: All treatment decisions require clinical judgment and consideration of individual patient factors, including patient preferences, comorbidities, previous drug use, risk factors not captured in the FRAX model (e.g. frailty, falls, vitamin D deficiency, increased bone turnover, interval significant decline in bone density) and possible under or overestimation of fracture risk by FRAX. Additional medical evaluation for secondary cause of low bone mineral density may be appropriate. FUTURE SCAN RECOMMENDATION: People with diagnosed cases of osteoporosis or at high risk for fracture should have regular bone mineral density tests. For patients eligible for Medicare, routine testing is allowed once every 2 years. The testing frequency can be increased to one year for patients who have rapidly progressing disease, those who are receiving or discontinuing medical therapy to restore bone mass, or have additional risk factors.
== END 2023-09-14 07:59 | disposition home or self-care (01) ==
LOC: HO.MAMMO 07:58
PROVIDERS: PCP Internal Medicine; Visit Provider Internal Medicine
DX: Z12.31 Encounter for screening mammogram for malignant neoplasm of breast (principal); Z13.820 Encounter for screening for osteoporosis; Z78.0 Asymptomatic menopausal state; M54.50 Low back pain, unspecified; F17.200 Nicotine dependence, unspecified, uncomplicated
CPT/HCPCS: 77063; 77067; 77080

== ENCOUNTER → 2023-09-14 08:45 | Outpatient (BNV) | payer MEDICARE, SELFPAY | PROVIDERS: PCP Internal Medicine; Visit Provider Radiology Diagnostic Radiology | DX: Z12.31 Encounter for screening mammogram for malignant neoplasm of breast (principal) | CPT/HCPCS: 77063; 77067 ==

== ENCOUNTER 2023-11-06 06:03 | Outpatient (REF) | payer MEDICARE, SELFPAY ==
[2023-11-06 10:40] LABS: MANUAL DIFF FLAG NO
[2023-11-06 10:51] LABS: Basophils Absolute Auto 0.1 X10*3/uL (0.0-0.2); Basophils Percent Auto 0.9 % (0-2); Eosinophils Absolute Auto 0.2 X10*3/uL (0.0-0.4); Hematocrit 43.4 % (37.0-47.0); Hemoglobin 14.3 g/dl (12.0-16.0); Imm Gran Abs Auto 0.02 X10*3/uL (0.00-0.03); Imm Gran Pct Auto 0.2 % (0.0-0.4); Lymphocytes Absolute Auto 4.2 X10*3/uL (1.2-4.9); Lymphocytes Percent Auto 46.4 % (20-40); Mean Corpuscular HGB Conc 32.9 g/dl (31.0-35.0); Mean Corpuscular Hemoglobin 30.4 pg (27.0-33.0); Mean Corpuscular Volume 92.3 fL (80.0-98.0); Mean Platelet Volume 11.4 fL (9.4-12.3); Monocytes Absolute Auto 0.6 X10*3/uL (0.1-1.2); Monocytes Percent Auto 6.3 % (2-11); Neutrophils Percent Auto 44.2 % (45-73); Platelet Count 283 X10*3/uL (160-400); Red Cell Distribution Width 14.5 % (11.0-16.0)
[2023-11-06 11:31] LABS: Alanine Aminotransferase 18 U/L (0-31); Alkaline Phosphatase 111 U/L (39-117); Anion Gap 12 (12-20); Aspartate Amino Transferase 20 U/L (5-31); Bilirubin Total 0.4 mg/dL (0.0-1.0); Blood Urea Nitrogen 16 mg/dL (9-16); Calcium 9.6 mg/dL (8.4-10.2); Carbon Dioxide 26 mmol/L (22-29); Chloride 109 mmol/L (96-108); Cholesterol 126 mg/dL (<200); Estimated Glomerular Filt Rate > 60; Glucose Fasting 96 mg/dL (60-99); HDL Cholesterol 42 mg/dL (>40); LDL Cholesterol Calculated 70 mg/dL (<100); Potassium 4.6 mmol/L (3.3-5.1); Sodium 142 mmol/L (135-145); Total Protein 6.9 g/dL (6.5-8.0); Triglycerides 70 mg/dL (<150)
== END 2023-11-06 06:04 | disposition home or self-care (01) ==
LOC: HO.HMGCLDS 06:03
PROVIDERS: PCP Internal Medicine; Visit Provider Internal Medicine
DX: R73.01 Impaired fasting glucose (principal); F17.200 Nicotine dependence, unspecified, uncomplicated; E78.9 Disorder of lipoprotein metabolism, unspecified; K59.09 Other constipation
CPT/HCPCS: 36415; 80053; 80061; 85025

== ENCOUNTER 2023-11-09 13:15 | Outpatient (AMB) | payer MEDICARE, SELFPAY ==
[2023-11-09 13:23] VITALS: BP 118/76; BMI 20.6
--- NOTE | 2023-11-09 13:23 | A.OFFPC_ITS ---
Vital Signs 11/09/23 13:23 Height 5 ft 3 in Weight 116 lb 2 oz BMI 20.6 BP 118/76 Blood Pressure Location Rt brachial Position Sitting Intake Visit Reasons: Annual uri from 10/30/23 Allergies No Known Allergies Allergy (Verified 11/09/23 13:25) Medication List - Last Reconciled 11/09/23 by Norman Suh MD alprazolam 0.25 mg PO DAILY PRN 15 days aspirin (Adult Low Dose Aspirin) 81 mg PO DAILY 90 days atorvastatin 80 mg PO QPM clobetasol 0.05% 1 appl topical DAILY 2 weeks Tobacco use date assessed: 11/09/23 Fall risk assessment: No Falls in past year Last assessed Fall Risk: 11/09/23 Dental Screening Dental Screen Date: 11/09/23 Did you have a dental visit in the last 12 months?: No Did you have a dental problem in the last 6 months where you did not have access to dental care?: No Was dental information given to patient?: Patient has dentist HPI Annual uri from 10/30/23 HPI Details Patient is 67-year-old female came in today for physical exam Patient is a smoker and has been smoking for years, she says that she has not ready to quit Her heart rate is 48 We did the EKG today which showed bigeminy is, 80 beats per minute This is a new finding compared to 2021 when patient seen production proofreader Dr. Camilo I have placed an urgent referral to Cardiology, message sent to cardiology office to book karine Pulse ox is 98% She had a bone density August of this year and her score came back at -2.7 I am starting her on Fosamax, patient is aware how to take that. She had colonoscopy November of 2021, 1 tubular adenoma was found She was told to repeat colonoscopy in 5 years, she will be due in 2026 Patient also need a dermatology appointment for skin cancer screening Labs done recently reviewed with the patient Her medications are atorvastatin 80 mg daily Follow-up six-month Physical exam 1 year [facility] Medical History Smoker CAD (coronary artery disease) Lipid disorder Surgical History Hx of tubal ligation H/O colonoscopy Family History Father Colon cancer Sister Breast cancer Family/Other Breast cancer Social History Housing: House Patient Tobacco Use Status: Current everyday Tobacco user Tobacco use type: Cigarette Cigarette Packs Per Day: 1 Cigarettes Per Day: 20.0 Years Smoked: 30 years e-Cigarette/Vaping Use: Never Used Current occupational status: unemployed Cognitive needs: No Hearing needs: No Vision needs: Yes Female Reproductive History Menstrual Age of Menarche: 13 Questionnaire Thrive Questionnaire Date Thrive assessed: 10/27/22 CORNELIA-7 AMB Questionnaire CORNELIA-7 Date CORNELIA - 7 assessed: 05/01/23 Source: Developed by Drs. Justo Moise, Deana Zapata, Marc Stearns and colleagues, with an educational alex from [email or web address]. Review of Systems Const Denies chills, Denies fever(s) and Denies headache(s) Eyes Denies blurry vision ENT Denies headache(s), Denies nasal discharge, Denies nasal obstruction, Denies odynophagia and Denies sinus pain Card Denies chest pain at rest and Denies chest pain with activity Resp Denies cough and Denies hemoptysis GI Denies diarrhea, Denies odynophagia, Denies vomiting and Denies hematemesis Reports as per HPI Musc Denies abnormal gait Skin/Breast Reports as per HPI Neuro Denies Neuro-related abnormal movements, Denies Abnormal speech present, Denies abnormal gait, Denies headache(s) and Denies Sensory deficit (Neuro) Psych Denies mood swings and Denies paranoia Endo Reports as per HPI George/Lymph Reports as per HPI Aller/Immun Reports as per HPI Physical exam (Primary Care) Vital Signs: Last Vital Signs BP 118/76 11/09/23 13:23 BMI result Body Mass Index 20.6 Tobacco/Smoking Status: Tobacco use Status Tobacco use date assessed 11/09/23 11/09/23 13:26 Patient Tobacco Use Status Current everyday Tobacco 11/09/23 13:26 Tobacco use type Cigarette 11/09/23 13:26 e-Cigarette/Vaping Use Never Used 11/09/23 13:26 Thrive Assessment: Date of Thrive Assessment Date Thrive assessed 10/27/22 11/09/23 13:26 Const General: cooperative, comfortable and no acute distress Orientation/consciousness: patient oriented x3 HENMT Head: Yes normocephalic and Yes atraumatic Eyes General: appearance normal, both eyes and all related structures Pupils: Equal, round and reactive pupils present EOM: EOMs intact bilaterally Neck Neck: Yes supple and No lymphadenopathy Thyroid: Thyroid normal Lymphatic: no lymphadenopathy noted Resp Effort & Inspection: normal respiratory effort and able to speak in complete sentences Auscultation: clear to auscultation bilaterally Cardio Other: S1-S2 GI Palpation (GI): Soft to palpation and nontender Auscultation: normal bowel sounds General: Yes no CVA tenderness Back/Spine/Pelvis Back: no CVA tenderness Skin General skin exam: elasticity normal and turgor normal Neuro General: patient oriented x3 and gait normal Cranial nerves: Yes Equal, round and reactive pupils present Speech: No Abnormal speech present Sensory Exam: No Sensory deficit (Neuro) Coordination: tandem gait normal and Romberg test negative Extrem General: Yes normal exam except as noted and No edema Assessment and Plan Assessment & Plan (1) Encounter for general adult medical examination with abnormal findings: Code(s): Z00.01 - Encounter for general adult medical examination with abnormal findings (2) Heart conduction disturbance: Code(s): I45.9 - Conduction disorder, unspecified (3) Ventricular bigeminy: Code(s): I49.8 - Other specified cardiac arrhythmias (4) Lipid disorder: Code(s): E78.9 - Disorder of lipoprotein metabolism, unspecified (5) Tobacco dependence: Code(s): F17.200 - Nicotine dependence, unspecified, uncomplicated (6) Osteoporosis: Code(s): M81.0 - Age-related osteoporosis without current pathological fracture Qualifiers: Osteoporosis type: age-related Presence of current pathological fracture: unspecified Qualified Code(s): M81.0 - Age-related osteoporosis without current pathological fracture Plan Patient is 67-year-old female came in today for physical exam Patient is a smoker and has been smoking for years, she says that she has not ready to quit Her heart rate is 48 We did the EKG today which showed bigeminy is, 80 beats per minute This is a new finding compared to 2021 when patient seen production proofreader Dr. Camilo I have placed an urgent referral to Cardiology, message sent to cardiology office to book karine Pulse ox is 98% She had a bone density August of this year and her score came back at -2.7 I am starting her on Fosamax, patient is aware how to take that. She had colonoscopy November of 2021, 1 tubular adenoma was found She was told to repeat colonoscopy in 5 years, she will be due in 2026 Patient also need a dermatology appointment for skin cancer screening Labs done recently reviewed with the patient Her medications are atorvastatin 80 mg daily Follow-up six-month Physical exam 1 year Orders: Referrals Cardiology Referral I45.9 - Conduction disorder, unspecified, I49.8 - Other specified cardiac arrhythmias Coding Level of Care Code Est Pt Level 4 (19149) Est Pt Prev Care >65y(94567) Diagnoses Encounter for general adult medical examination with abnormal findings Z00.01 Heart conduction disturbance I45.9 Ventricular bigeminy I49.8 Lipid disorder E78.9 Tobacco dependence F17.200 Age related osteoporosis, unspecified pathological fracture presence M81.0 Osteoporosis type: age-related Presence of current pathological fracture: unspecified
== END 2023-11-09 13:54 | disposition home or self-care (01) ==
PROVIDERS: PCP Internal Medicine; Visit Provider Internal Medicine
DX: Z00.01 Encounter for general adult medical examination with abnormal findings (principal); I45.9 Conduction disorder, unspecified; I49.8 Other specified cardiac arrhythmias; E78.9 Disorder of lipoprotein metabolism, unspecified; F17.200 Nicotine dependence, unspecified, uncomplicated; M81.0 Age-related osteoporosis without current pathological fracture
CPT/HCPCS: 93000; 99214; 99397

== ENCOUNTER 2023-11-27 14:01 | Outpatient (AMB) | payer MEDICARE, SELFPAY ==
[2023-11-27 14:04] VITALS: BP 120/62; PULSE 79; BMI 20.8
--- NOTE | 2023-11-27 14:04 | A.OFFVIS_ITS ---
Vital Signs 11/27/23 14:04 Height 5 ft 3 in Weight 117 lb 4.575 oz BMI 20.8 BP 120/62 Blood Pressure Location Rt brachial Position Sitting Pulse 79 Pulse Source Monitor Intake Visit Reasons: follow-up per pcp abn ekg Trench Pipe Layer Required: No Allergies No Known Allergies Allergy (Verified 11/27/23 14:06) Medication List - Last Reconciled 11/27/23 by Mara Dutta, RENAN-C alprazolam 0.25 mg PO DAILY PRN 15 days aspirin (Adult Low Dose Aspirin) 81 mg PO DAILY 90 days atorvastatin 80 mg PO QPM clobetasol 0.05% 1 appl topical DAILY 2 weeks HPI HPI follow-up per pcp abn ekg: Details: Kaur is a 67-year-old female past medical history of hyperlipidemia, smoking, nonobstructive coronary artery disease who presents for follow-up after recent EKG showing ventricular bigeminy. Her last prior visit to our office was 07/19/2021. Today she reports that she has been doing well over the last few years. She has not had any chest discomfort at rest or with activity. She does not notice heart palpitations but if she checks her pulse she can see feel that it is irregular at times. No shortness of breath, lightheadedness, presyncope, syncope, falls, PND, orthopnea or edema. She reports good activity tolerance with walking routinely in the care of her young grandchild. She continues to smoke 1 pack of cigarettes per day. She is compliant with her medications. [facility] Medical History Smoker CAD (coronary artery disease) Lipid disorder Surgical History Hx of tubal ligation H/O colonoscopy Family History Father Colon cancer Sister Breast cancer Family/Other Breast cancer Social History Housing: House Patient Tobacco Use Status: Current everyday Tobacco user Tobacco use type: Cigarette Cigarette Packs Per Day: 1 Cigarettes Per Day: 20.0 Years Smoked: 30 years e-Cigarette/Vaping Use: Never Used Current occupational status: unemployed Cognitive needs: No Hearing needs: No Vision needs: Yes Female Reproductive History Menstrual Age of Menarche: 13 Review of Systems Const All systems reviewed & are unremarkable except as noted in HPI and below ENT Denies dizziness Card Details: irregular pulse noted Denies chest pain, Denies chest pain at rest, Denies chest pain with activity, Denies rapid heart rate, Denies pedal edema, Denies edema, Denies leg edema, Denies lightheadedness, Denies palpitations, Denies dyspnea, Denies dyspnea on exertion and Denies orthopnea Resp Denies cough, Denies dyspnea and Denies dyspnea on exertion GI Denies hematochezia and Denies change in stool character Musc Denies abnormal gait, Denies limited range of motion, Denies muscle cramps, Denies muscle weakness, Denies numbness, Denies radiating pain into limb, Denies stiffness and Denies tingling Neuro Denies abnormal gait, Denies dizziness, Denies numbness and Denies tingling Endo Denies palpitations Physical Exam Vital Signs: Last Vital Signs Pulse 79 11/27/23 14:04 BP 120/62 11/27/23 14:04 BMI result Body Mass Index 20.8 Const General: cooperative, healthy appearing, comfortable and no acute distress Orientation/consciousness: patient oriented x3 Neck Neck: Yes normal visual inspection and Yes no JVD Resp Effort & Inspection: normal respiratory effort Auscultation: clear to auscultation bilaterally, no crackles, no rales, no rhonchi and no wheezes Cardio Jugular venous distension: no JVD Rate: regular rate Rhythm: regular rhythm Heart sounds: S1 normal heart sound present, S2 normal heart sound present, no murmurs and no rubs Neuro General: patient oriented x3 Extrem General: Yes normal to inspection, No no pedal edema and No calf tenderness Psych Appearance: grossly normal Mental Status: mental status grossly normal Speech and movement: Normal speech and movement present Office Procedures EKG Details: Today, read by me, sinus rhythm with frequent PVC, rate 79, QTC 442 milliseconds [id number], Complete Assessment & Plan Assessment & Plan (1) PVCs (premature ventricular contractions): Code(s): I49.3 - Ventricular premature depolarization Category: Medical Plan: Recent EKG done by PCP shows sinus rhythm with ventricular bigeminy. EKG done today showing sinus rhythm with frequent PVCs, 4 PVCs on 10 second tracing, rate 79. She does not feel heart palpitations. She does notice that her heart rate is irregular when she feels her pulse. No anginal symptoms. History of nonobstructive CAD. Last cardiac testing in 2018 showed normal stress echo and echocardiogram with normal EF, no regional wall motion abnormalities. This time will check an exercise nuclear stress test to evaluate for any ischemia, increased PVCs with exercise. Will check an echocardiogram to assess EF and for any structural abnormalities. Will check a Holter monitor to assess frequency of PVCs. She drinks 1 caffeinated beverage daily. Instructed on reduction in caffeine intake, maintaining good hydration, activity as tolerated. Cardiology office visit in 4-6 weeks, sooner if needed. (2) Coronary artery disease: Code(s): I25.10 - Atherosclerotic heart disease of [place] coronary artery without angina pectoris Category: Medical Plan: History of nonobstructive CAD. Will update cardiac testing as above (3) Ventricular bigeminy: Code(s): I49.8 - Other specified cardiac arrhythmias Category: Medical Plan: As above (4) Tobacco dependence: Code(s): F17.200 - Nicotine dependence, unspecified, uncomplicated Category: Medical Plan: Continues to smoke 1 pack per day. She denies any COPD. She says her breathing is normal. Benefit of smoking cessation reviewed with her. Plan Time spent on chart review, documentation, interview and assessment Orders: Orders NM cardiolite stress test Today F17.200 - Nicotine dependence, unspecified, uncomplicated, I49.3 - Ventricular premature depolarization ECG 3 day holter monitor Today F17.200 - Nicotine dependence, unspecified, uncomplicated, I49.3 - Ventricular premature depolarization CA echo transthoracic complete Today I49.3 - Ventricular premature depolarization CA stress test Today F17.200 - Nicotine dependence, unspecified, uncomplicated, I49.3 - Ventricular premature depolarization Coding Level of Care Code Est Pt Level 4 (28642) Diagnoses PVCs (premature ventricular contractions) I49.3 Coronary artery disease I25.10 Ventricular bigeminy I49.8 Tobacco dependence F17.200 CPT Codes EKG - CPT: 67805-[id number], Complete ([id number]) Time Spent (min) 28
== END 2023-11-27 14:57 | disposition home or self-care (01) ==
PROVIDERS: PCP Internal Medicine; Visit Provider Nurse Practitioner Family
DX: I49.3 Ventricular premature depolarization (principal); I25.10 Atherosclerotic heart disease of native coronary artery without angina pectoris; I49.8 Other specified cardiac arrhythmias; F17.200 Nicotine dependence, unspecified, uncomplicated
CPT/HCPCS: 93010; 99214

== ENCOUNTER → 2023-11-27 14:01 | Outpatient (BNVA) | payer MEDICARE, SELFPAY | PROVIDERS: PCP Internal Medicine; Visit Provider Nurse Practitioner Family | DX: I49.3 Ventricular premature depolarization (principal); I25.10 Atherosclerotic heart disease of native coronary artery without angina pectoris; I49.8 Other specified cardiac arrhythmias; F17.210 Nicotine dependence, cigarettes, uncomplicated | CPT/HCPCS: 93005; 99212 ==

== ENCOUNTER → 2023-12-19 08:54 | Outpatient (REF) | payer MEDICARE, SELFPAY ==
--- NOTE | 2023-12-19 09:00 | HM_ITS ---
Conclusion: 1. Patient was monitored for total period of 2 days and 23 hours 2. Baseline was normal sinus rhythm with average heart of 73 beats per minute 3. No significant pauses noted 4. Frequent PVCs noted with total burden of 8.6% with 1 nonsustained VT at 3 beats at 189 beats per minute 5. No patient reported events MTDD
--- NOTE | 2023-12-19 09:09 | CA_ITS ---
Transthoracic Echocardiogram Patient (Last, First, Middle): Kaur Combs, Gender: Female Date of : 1955 Age: 67 Procedure Date: 12/19/2023 Procedure Type: Transthoracic Echocardiogram Location: OP Height: 160.02 cm Weight: 53.52 kg BSA: 1.55 m2 Heart Rate: bpm BP: 128 / 70 mmHg [employer] Molder: TO Referring MD: Mara KESSLER Manager Of Business Operations: Fredi Camilo MD Symptoms: I49.3 - Ventricular premature depolarization Study Quality: Fair/Contrast ECG Rhythm: Sinus Conclusions: - 1. [id number] LV systolic dysfunction with grade 1 diastolic dysfunction 2. Normal cardiac valvular Dopplers 3. No gross pericardial effusion Findings Procedure Information Contrast agent, definity, is being given per protocol without apparent complications. Left Ventricle Normal left ventricular cavity size. There is normal left ventricular wall thickness. The left ventricular systolic function is mild to moderately decreased. The visually estimated ejection fraction is between 40-45%. Spectral Doppler is indicative of an impaired relaxation filling pattern. E/E prime ratio is <8, consistent with normal filling pressures. Evidence suggests grade I (mild) diastolic dysfunction. Right Ventricle Normal right ventricular cavity size and systolic function. Atria The left atrium is likely dilated. There is no evidence of interatrial shunt. The right atrium is normal in size. Aortic Valve Normal aortic valve structure and function. There is no aortic valve stenosis. There is no aortic valve regurgitation. Mitral Valve Normal mitral valve structure and function. There is trace mitral valve regurgitation. There is no mitral valve stenosis. Pulmonic Valve The pulmonic valve is likely normal. Tricuspid Valve Normal tricuspid valve structure. Tricuspid regurgitation envelope is inadequate for calculation of right ventricular systolic pressure. Normal right atrial pressure. Great Vessels All visible segments of the aorta are normal in size. The pulmonary artery was not well visualized. There is no dilatation of the ascending aorta measuring 3.40 cm. Venous The inferior vena cava is normal in size and collapses greater than 50% with inspiration. Pericardium/Pleural There is no evidence of pericardial effusion. Prior Study Comparison Changes noted compared to prior study dated: 08/29/2017. LV systolic function is reduced Measurements 2D Linear Measurements IVSd: 0.87 0.6-0.9/0.6-1.0 cm LVIDd: 5.07 3.9-5.3/4.2-5.9 cm LVIDd Index: 3.27 2.4-3.2/2.2-3.1 cm/m2 LVIDs: 3.36 2.0-3.6 cm LVPWd: 0.78 0.7-1.1 cm LA Diam: 3.30 2.7-3.8/3.0-4.0 cm LAIDs Index: 2.13 1.5-2.3 cm/m2 LV Mass: 180.21 67-162/88-224 g LV Mass Index: 116.26 43-95/49-115 g/m2 LVOT Diam: 2.10 3.0+(-)1.3 cm 2D Systolic Function EF 4C: 42.00 >55% EF 2C: 44.90 >55% EF BiP: 42.10 >55% Mitral Valve MV Pk E: 0.30 MV PK A: 0.54 MV Decel Time: 250.00 E/A: 0.60 E'Lateral: 3.59 E'Medial: 3.15 E/E' Med: 9.50 E/E' Lat: 8.40 PHT: 73.00 MVA PHT: 3.01 Decel [place]: 1.20 Aortic Valve AoV Pk Owen: 1.11 AoV Mn Owen: 0.77 AoV VTI: 0.21 AoV Pk Grad: 5.00 Aov Mn Grad: 3.00 YVETTE Cont.VTI: 2.25 LVOT LVOT Pk Owen: 0.67 LVOT Mn Owen: 0.42 LVOT VTI: 0.14 LVOT Pk Grad: 2.00 LVOT Mn Grad: 1.00 LVOT Diam: 2.10 LVOT Area: 3.46 Diastolic Function MV Pk E: 0.30 MV Pk A: 0.54 E/A: 0.60 E'Medial: 3.15 E/E' Med: 9.50 E' Laterial: 3.59 E/E' Lat: 8.40 Right Ventricle TAPSE (mm): 19.40 TVS' Owen: 10.00 Tricuspid Valve RA Press: 3.00 Great Vessels Aorta Sinus of Valsalva: 3.51 2.0-3.[address] [place]: 2.83 1.7-3.4 cm Ao Asc: 3.40 2.1-3.4 cm Updated in Other Vendor System with Status of Final Fredi Camilo MD electronically signed on 12/19/2023 4:17:54 PM with status of Final
== END ==
LOC: HO.CARD 08:54
PROVIDERS: PCP Internal Medicine; Visit Provider Nurse Practitioner Family
DX: I49.3 Ventricular premature depolarization (principal); F17.200 Nicotine dependence, unspecified, uncomplicated
CPT/HCPCS: 93242; 93306; Q9957

== ENCOUNTER → 2023-12-19 09:09 | Outpatient (BNV) | payer MEDICARE, SELFPAY | PROVIDERS: PCP Internal Medicine; Visit Provider Internal Medicine Cardiovascular Disease | DX: I51.89 Other ill-defined heart diseases (principal) | CPT/HCPCS: 93244; 93306 ==

== ENCOUNTER → 2024-01-09 08:20 | Outpatient (REF) | payer MEDICARE, SELFPAY ==
--- NOTE | ~2024-01-09 | NM_ITS ---
Exercise Myocardial perfusion study Indication: Ventricle arrhythmias to evaluate for myocardial ischemia Technique: The patient was brought in for an exercise perfusion study on 01/09/2024. Patient performed exercise as per Kevin protocol and was injected 25 mCi of sestamibi was given intravenously one target HR was achieved. Images were obtained using the SPECT gamma camera interlaced with the gating device. Images were obtained in supine position. Resting perfusion study was performed on 01/14/2024. Patient was administered 25 mCi of sestamibi intravenously at rest. Images were then obtained in supine position. Images obtained with and without CT attenuation. Total DLP 64 mGy-cm. Images were processed with the software and compared side to side in short axis, horizontal long axis and vertical long axis views. Findings: The stress perfusion study showed non attenuated images show normal uptake of radiotracer in all segments of LV myocardium. Attenuated images show minimally reduced uptake in the apex of the LV myocardium.. The gated study was not performed due to frequent PVCs.. LV cavity is normal in in size. There is no transient ischemic dilation. Resting study shows no change in perfusion pattern compared to stress perfusion study. Gating at rest was not performed due to frequent PVCs. The findings are consistent with normal myocardial perfusion. NM/NM cardiolite stress test Impression: 1. Normal myocardial perfusion 2. Gated LVEF is not obtained 3. Transient ischemic dilatation not present Stress EKG is equivocal for ischemia
--- NOTE | 2024-01-09 08:23 | CA_ITS ---
Acquisition Time: 2024-01-09 08:30:23 Total Exercise Time: 00:08:31 Test Indications: PVC'S Medications: Protocol: ANNITA Max HR: 129 BPM 84% of Pred: 153 BPM Max BP: 178/070 mmHG Max Work Load: 10.7 METS Exercise stress test exercise 8 min 31 sec of Annita protocol achieivng 82-85% MPHR, with mild to moderate SOB, no chest discomfort, Freq PVCs, Ventricular bigeminy, venticular cuplets, with normtoensive response to exercise, with downsloping in leads 2, 3, aVF, V3-V6 not meeting criteria. . Nuclear images pending. Test reviewed with Dr. Camilo Referred By: Mara Dutta Overread By: Tori Major
== END ==
LOC: HO.CARD 08:20
PROVIDERS: PCP Internal Medicine; Visit Provider Nurse Practitioner Family
DX: I49.3 Ventricular premature depolarization (principal); F17.200 Nicotine dependence, unspecified, uncomplicated
CPT/HCPCS: 78452; 93017; A9500

== ENCOUNTER → 2024-01-09 08:23 | Outpatient (BNV) | payer MEDICARE, SELFPAY | PROVIDERS: PCP Internal Medicine; Visit Provider Nurse Practitioner | DX: I49.3 Ventricular premature depolarization (principal) | CPT/HCPCS: 78452; 93016; 93018 ==

== ENCOUNTER 2024-01-11 09:03 | Outpatient (AMB) | payer MEDICARE, SELFPAY ==
[2024-01-11 09:20] VITALS: BP 118/60; PULSE 57; BMI 20.7
--- NOTE | 2024-01-11 09:20 | MHC.OFFVIS ---
Vital Signs 01/11/24 09:20 Height 5 ft 3 in Weight 116 lb 13.52 oz BMI 20.7 BP 118/60 Blood Pressure Location Lt brachial Position Sitting Pulse 57 Pulse Source Pulse Oximeter Intake Visit Reasons: f/up echo/ holter/ stress Allergies No Known Allergies Allergy (Verified 11/27/23 14:06) Medication List - Last Reconciled 01/11/24 by Mara Dutta, [employer]-C alprazolam 0.25 mg PO DAILY PRN 15 days aspirin (Adult Low Dose Aspirin) 81 mg PO DAILY 90 days atorvastatin 80 mg PO QPM clobetasol 0.05% 1 appl topical DAILY 2 weeks metoprolol succinate ER 25 mg PO DAILY HPI HPI f/up echo/ holter/ stress: Details: Kaur is a 68-year-old female past medical history of hyperlipidemia, smoking, nonobstructive coronary artery disease, recent EKG showing ventricular bigeminy who presents for follow-up after recent echocardiogram, nuclear stress test and Holter monitor. Today she reports that she has been feeling well since her last visit. She has no concerning symptoms. She has not had any chest discomfort at rest or with activity. She does not notice heart palpitations but if she checks her pulse she can see feel that it is irregular at times. No shortness of breath, lightheadedness, presyncope, syncope, falls, PND, orthopnea or edema. She reports good activity tolerance with walking routinely in the care of her young grandchild. She continues to smoke 1 pack of cigarettes per day. She is compliant with her medications. [facility] Medical History Smoker CAD (coronary artery disease) Lipid disorder Surgical History Hx of tubal ligation H/O colonoscopy Family History Father Colon cancer Sister Breast cancer Family/Other Breast cancer Social History Housing: House Patient Tobacco Use Status: Current everyday Tobacco user Tobacco use type: Cigarette Cigarette Packs Per Day: 1 Cigarettes Per Day: 20.0 Years Smoked: 30 years e-Cigarette/Vaping Use: Never Used Current occupational status: unemployed Cognitive needs: No Hearing needs: No Vision needs: Yes Female Reproductive History Menstrual Age of Menarche: 13 Review of Systems Const All systems reviewed & are unremarkable except as noted in HPI and below Denies weakness ENT Denies dizziness Card Denies chest pain, Denies chest pain with activity, Denies syncope, Denies rapid heart rate, Denies pedal edema, Denies edema, Denies leg edema, Denies lightheadedness, Denies palpitations, Denies dyspnea, Denies dyspnea on exertion and Denies orthopnea Resp Denies cough, Denies dyspnea and Denies dyspnea on exertion GI Denies hematochezia and Denies change in stool character Musc Denies abnormal gait, Denies muscle cramps, Denies muscle weakness, Denies numbness, Denies radiating pain into limb and Denies tingling Neuro Denies abnormal gait, Denies dizziness, Denies syncope, Denies numbness, Denies tingling and Denies weakness Endo Denies palpitations Physical Exam Vital Signs: Last Vital Signs Pulse 57 01/11/24 09:20 BP 118/60 01/11/24 09:20 BMI result Body Mass Index 20.7 Const General: cooperative, healthy appearing, comfortable and no acute distress Orientation/consciousness: patient oriented x3 Neck Neck: Yes normal visual inspection and Yes no JVD Resp Effort & Inspection: normal respiratory effort Auscultation: clear to auscultation bilaterally, no crackles, no rales, no rhonchi and no wheezes Cardio Jugular venous distension: no JVD Rate: regular rate Rhythm: regular rhythm Heart sounds: S1 normal heart sound present, S2 normal heart sound present, no murmurs and no rubs Neuro General: patient oriented x3 Extrem General: Yes normal to inspection, No no pedal edema and No calf tenderness Psych Appearance: grossly normal Mental Status: mental status grossly normal Speech and movement: Normal speech and movement present Assessment & Plan Assessment & Plan (1) PVCs (premature ventricular contractions): Code(s): I49.3 - Ventricular premature depolarization Category: Medical Plan: Recent EKG done by PCP shows sinus rhythm with ventricular bigeminy. EKG done on last visit showing sinus rhythm with frequent PVCs, 4 PVCs on 10 second tracing, rate 79. She does not feel heart palpitations. She does notice that her heart rate is irregular when she feels her pulse. No anginal symptoms. History of nonobstructive CAD. Last cardiac testing in 2018 showed normal stress echo and echocardiogram with normal EF, no regional wall motion abnormalities. A Holter monitor was done 12/19/2023 for 3 days showing sinus rhythm with average heart rate 73, frequent PVCs, 8.6%, one 3 beat VT. An echocardiogram was done on 12/19/2023 showing EF 40-45%, grade 1 diastolic dysfunction, normal valves. A nuclear stress test was done on 01/09/2024 with exercise 8.5 minutes with shortness of breath and frequent PVCs, nuclear imaging results are still pending. Plan to call her with results once available. Still need to find out if she has ischemia. 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 She continues on metoprolol XL 25 mg daily. She is not noticing any heart palpitations. She admits to drinking now coffee in the a.m. and Coca-Cola throughout the day. Instruct on the reduction in caffeinated beverages, maintain good hydration, activity as tolerated. - will see results of the nuclear stress test and determine further plan of care. Will check labs that day including TSH and magnesium as they have not been done recently. -at this time will put for a cardiology office visit in 3 months, sooner if needed. (2) Coronary artery disease: Code(s): I25.10 - Atherosclerotic heart disease of [place] coronary artery without angina pectoris Category: Medical Plan: History of nonobstructive CAD. Coronary calcifications seen on CT scan for lung cancer screening back in 2018. No anginal symptoms. Nuclear stress test being done as above. (3) Ventricular bigeminy: Code(s): I49.8 - Other specified cardiac arrhythmias Category: Medical Plan: As above (4) Tobacco dependence: Code(s): F17.200 - Nicotine dependence, unspecified, uncomplicated Category: Medical Plan: Continues to smoke 1 pack per day. She denies any COPD. She says her breathing is normal. Benefit of smoking cessation reviewed with her. Plan Time spent on chart review, documentation, interview and assessment Orders: Orders Magnesium Today I49.3 - Ventricular premature depolarization TSH reflex Free T4 Today I49.3 - Ventricular premature depolarization Coding Level of Care Code Est Pt Level 3 (88984) Diagnoses PVCs (premature ventricular contractions) I49.3 Coronary artery disease I25.10 Ventricular bigeminy I49.8 Tobacco dependence F17.200 Time Spent (min) 24
== END 2024-01-11 09:53 | disposition home or self-care (01) ==
PROVIDERS: PCP Internal Medicine; Visit Provider Nurse Practitioner Family
DX: I49.3 Ventricular premature depolarization (principal); I25.10 Atherosclerotic heart disease of native coronary artery without angina pectoris; I49.8 Other specified cardiac arrhythmias; F17.200 Nicotine dependence, unspecified, uncomplicated
CPT/HCPCS: 99213

== ENCOUNTER → 2024-01-11 09:03 | Outpatient (BNVA) | payer MEDICARE, SELFPAY | PROVIDERS: PCP Internal Medicine; Visit Provider Nurse Practitioner Family | DX: I25.10 Atherosclerotic heart disease of native coronary artery without angina pectoris (principal); I49.3 Ventricular premature depolarization; F17.210 Nicotine dependence, cigarettes, uncomplicated | CPT/HCPCS: 99212 ==

== ENCOUNTER 2024-01-16 14:32 | Outpatient (REF) | payer MEDICARE, SELFPAY ==
[2024-01-16 17:04] LABS: Magnesium 2.1 mg/dL (1.6-2.6)
[2024-01-16 17:21] LABS: TSH reflex Free T4 1.73 uIU/mL (0.32-4.0)
== END 2024-01-16 14:33 | disposition home or self-care (01) ==
LOC: HO.HMGCLDS 14:32
PROVIDERS: PCP Internal Medicine; Visit Provider Nurse Practitioner Family
DX: I49.3 Ventricular premature depolarization (principal)
CPT/HCPCS: 36415; 83735; 84443

== ENCOUNTER 2024-05-05 13:33 | Outpatient (AMB) | payer MEDICARE, SELFPAY ==
[2024-05-05 14:00] VITALS: BP 118/72; PULSE 61; BMI 21.4
--- NOTE | 2024-05-05 14:00 | A.OFFVIS_ITS ---
Vital Signs 05/05/24 14:00 Height 5 ft 3 in Weight 120 lb 13.013 oz BMI 21.4 BP 118/72 Blood Pressure Location Lt brachial Position Sitting Pulse 61 Pulse Source Pulse Oximeter Intake Visit Reasons: 3 month follow up Clinical Nutrition Manager Required: No Allergies No Known Allergies Allergy (Verified 05/05/24 14:02) Medication List - Last Reconciled 05/05/24 by Mara Dutta NP-C alprazolam 0.25 mg PO DAILY PRN 15 days aspirin (Adult Low Dose Aspirin) 81 mg PO DAILY 90 days atorvastatin 80 mg PO QPM clobetasol 0.05% 1 appl topical DAILY 2 weeks metoprolol succinate ER 25 mg PO DAILY HPI HPI 3 month follow up: Details: Kaur is a 68-year-old female past medical history of hyperlipidemia, smoking, nonobstructive coronary artery disease, frequent PVCs, mild cardiomyopathy who presents for follow-up. Today she reports that she has been feeling well since her last visit. She has no concerning symptoms. She has not had any chest discomfort at rest or with activity. She does not notice heart palpitations. No shortness of breath, lightheadedness, presyncope, syncope, falls, PND, orthopnea or edema. She reports good activity tolerance with walking routinely in the care of her young grandchild. She continues to smoke 1 pack of cigarettes per day. She has tried to reduce the amount of Coca-Cola she drinks. She admits to skipping her metoprolol at times as she forgets. [facility] Medical History Smoker CAD (coronary artery disease) Lipid disorder Surgical History Hx of tubal ligation H/O colonoscopy Family History Father Colon cancer Sister Breast cancer Family/Other Breast cancer Social History Housing: House Patient Tobacco Use Status: Current everyday Tobacco user Tobacco use type: Cigarette Cigarette Packs Per Day: 1 Cigarettes Per Day: 20.0 Years Smoked: 30 years e-Cigarette/Vaping Use: Never Used Current occupational status: unemployed Cognitive needs: No Hearing needs: No Vision needs: Yes Female Reproductive History Menstrual Age of Menarche: 13 Review of Systems Const All systems reviewed & are unremarkable except as noted in HPI and below ENT Denies dizziness Card Denies chest pain, Denies chest pain at rest, Denies chest pain with activity, Denies rapid heart rate, Denies pedal edema, Denies edema, Denies leg edema, Denies lightheadedness, Denies palpitations, Denies dyspnea, Denies dyspnea on exertion and Denies orthopnea Resp Denies cough, Denies dyspnea and Denies dyspnea on exertion GI Denies hematochezia and Denies change in stool character Musc Denies abnormal gait, Denies limited range of motion, Denies muscle cramps, Denies muscle weakness, Denies numbness, Denies radiating pain into limb, Denies stiffness and Denies tingling Neuro Denies abnormal gait, Denies dizziness, Denies numbness and Denies tingling Endo Denies palpitations Physical Exam Vital Signs: Last Vital Signs Pulse 61 05/05/24 14:00 BP 118/72 05/05/24 14:00 BMI result Body Mass Index 21.4 Const General: cooperative, healthy appearing, comfortable and no acute distress Orientation/consciousness: patient oriented x3 Neck Neck: Yes normal visual inspection and Yes no JVD Resp Effort & Inspection: normal respiratory effort Auscultation: clear to auscultation bilaterally, no crackles, no rales, no rhonchi and no wheezes Cardio Jugular venous distension: no JVD Rate: regular rate Rhythm: regular rhythm Heart sounds: S1 normal heart sound present, S2 normal heart sound present, no murmurs and no rubs Neuro General: patient oriented x3 Extrem General: Yes normal to inspection, No no pedal edema and No calf tenderness Psych Appearance: grossly normal Mental Status: mental status grossly normal Speech and movement: Normal speech and movement present Assessment & Plan Assessment & Plan (1) PVCs (premature ventricular contractions): Code(s): I49.3 - Ventricular premature depolarization Category: Medical Plan: Prior EKG done by PCP shows sinus rhythm with ventricular bigeminy. She then had evaluation for her PVCs. An EKG done in our office showed sinus rhythm with frequent PVCs, 4 PVCs on 10 second tracing, rate 79. A Holter monitor was done 12/19/2023 for 3 days showing sinus rhythm with average heart rate 73, frequent PVCs, 8.6%, one 3 beat VT. An echocardiogram was done on 12/19/2023 showing EF 40-45%, grade 1 diastolic dysfunction, normal valves. A nuclear stress test was done on 01/09/2024 with exercise 8.5 minutes with shortness of breath and frequent PVCs, normal myocardial perfusion imaging. She was put on metoprolol XL 25 mg daily. On last visit she admitted to drinking Coca-Cola frequently throughout the day. She denies any heart palpitations and reports good activity tolerance. On exam today she does not appear fluid overloaded. Her heart tones are regular on exam. She continues to drink 1 coffee in the a.m. and Coca-Cola in the daytime however she says she has reduced her amount. There are days that she misses her metoprolol as she forgets. It is possible that her PVCs are related to the high caffeine intake. Discuss this with her. Instruct on the reduction in caffeinated beverages and the need for daily compliance with metoprolol. Will plan to recheck a limited echo and Holter monitor prior to her next visit. Cardiology follow-up in 4 months, sooner if needed. (2) Coronary artery disease: Code(s): I25.10 - Atherosclerotic heart disease of [place] coronary artery without angina pectoris Category: Medical Plan: History of nonobstructive CAD. Coronary calcifications seen on CT scan for lung cancer screening back in 2018. No anginal symptoms. Nuclear stress test normal. (3) Ventricular bigeminy: Code(s): I49.8 - Other specified cardiac arrhythmias Category: Medical Plan: As above (4) Tobacco dependence: Code(s): F17.200 - Nicotine dependence, unspecified, uncomplicated Category: Medical Plan: Continues to smoke 1 pack per day. She denies any COPD. She says her breathing is normal. Benefit of smoking cessation reviewed with her. (5) Cardiomyopathy: Code(s): I42.9 - Cardiomyopathy, unspecified Category: Medical Plan: Mild nonischemic cardiomyopathy. May be related to frequent PVCs. Plan Time spent on chart review, documentation, interview and assessment Orders: Orders ECG holter monitor 24 hour 05/05/24 I49.3 - Ventricular premature depolarization CA Echo Limited 3 Months I42.9 - Cardiomyopathy, unspecified Coding Level of Care Code Est Pt Level 4 (71143) Complex EM visit Add On G2211 Diagnoses PVCs (premature ventricular contractions) I49.3 Coronary artery disease I25.10 Ventricular bigeminy I49.8 Tobacco dependence F17.200 Cardiomyopathy I42.9 Time Spent (min) 30
== END 2024-05-05 14:42 | disposition home or self-care (01) ==
PROVIDERS: PCP Internal Medicine; Visit Provider Nurse Practitioner Family
DX: I49.3 Ventricular premature depolarization (principal); I25.10 Atherosclerotic heart disease of native coronary artery without angina pectoris; I49.8 Other specified cardiac arrhythmias; F17.200 Nicotine dependence, unspecified, uncomplicated; I42.9 Cardiomyopathy, unspecified
CPT/HCPCS: 99214; G2211

== ENCOUNTER → 2024-05-05 13:33 | Outpatient (BNVA) | payer MEDICARE, SELFPAY | PROVIDERS: PCP Internal Medicine; Visit Provider Nurse Practitioner Family | DX: I25.10 Atherosclerotic heart disease of native coronary artery without angina pectoris (principal); I10 Essential (primary) hypertension; I49.3 Ventricular premature depolarization; I49.8 Other specified cardiac arrhythmias; I42.9 Cardiomyopathy, unspecified; F17.210 Nicotine dependence, cigarettes, uncomplicated | CPT/HCPCS: 99212 ==

== ENCOUNTER 2024-05-14 09:49 | Outpatient (AMB) | payer MEDICARE, SELFPAY ==
[2024-05-14 09:52] VITALS: BP 136/72; PULSE 76; O2SAT 97; BMI 21.3
--- NOTE | 2024-05-14 09:52 | MHC.PC.OV ---
Vital Signs 05/14/24 09:52 Height 5 ft 3 in Weight 120 lb 4 oz BMI 21.3 BP 136/72 Blood Pressure Location Rt brachial Position Sitting Pulse 76 Pulse Source Pulse Oximeter Pulse Oximetry (%) 97 Oxygen Delivery Method Room Air Intake Visit Reasons: Sun f/ Allergies No Known Allergies Allergy (Verified 05/14/24 09:52) Medication List - Last Reconciled 05/14/24 by Norman Suh MD alprazolam 0.25 mg PO DAILY PRN 15 days aspirin (Adult Low Dose Aspirin) 81 mg PO DAILY 90 days atorvastatin 80 mg PO QPM clobetasol 0.05% 1 appl topical DAILY 2 weeks metoprolol succinate ER 25 mg PO DAILY Tobacco use date assessed: 05/14/24 Last assessed Fall Risk: 05/14/24 Dental Screening Dental Screen Date: 05/14/24 Did you have a dental visit in the last 12 months?: Yes Did you have a dental problem in the last 6 months where you did not have access to dental care?: No Was dental information given to patient?: Patient has dentist HPI Sun f/ HPI Details The patient is a 68-year-old female presenting with a lipid disorder for a 6-month follow-up. She is currently managed on atorvastatin 80 mg for hyperlipidemia and metoprolol 25 mg, prescribed by her collection systems administrator. She is also under continuous cardiology care, having had a recent cardiology visit on May 05, with tests and assessments showing normal results. Her cardiovascular health was last evaluated in October during her physical exam and via a stress test conducted in December. The December stress test indicated frequent premature ventricular contractions, ventricular bigeminy, and couplets but was otherwise normal, without chest discomfort. Her echocardiogram from November revealed mild to moderate left ventricular systolic dysfunction with grade 1 diastolic dysfunction. She continues to smoke one pack of cigarettes per day, despite efforts to reduce to half a pack. Previous lung cancer screening noted calcification of coronary vessels in 2017, sparking continued cardiology assessments. She reports normal breathing without the need for inhalers and has agreed to undergo further pulmonary function testing to evaluate lung capacity due to her smoking history. Smoking: Currently smokes one pack of cigarettes per day; attempting to reduce to half a pack. - No specific reports on employment, housing, or other social determinants. Echocardiogram (November): Mild to moderate LV systolic dysfunction, grade 1 diastolic dysfunction, normal cardiac valves, no pericardial effusion. - Stress Test (December): Exercise duration was 8 minutes 31 seconds, frequent PVCs, ventricular bigeminy and couplet, normotensive response to exercise, with nuclear images pending. - Laboratory: October - Normal WBC, hemoglobin, and kidney function. December - Normal magnesium (2.1) and TSH (1.73). Plan Lipid Disorder: Continue atorvastatin 80 mg as current management is effective. Monitor lipid profile at next follow-up. - Left Ventricular Systolic Dysfunction: Continue follow-up with cardiology, next visit in August. - Smoking-related Lung Disease Emphysema): Schedule pulmonary function test to assess lung function. Encourage smoking cessation, interlinking lung health with heart condition management. Patient's instructions Continue current medication regimen: atorvastatin and metoprolol. - Schedule and complete the pulmonary function test. - Efforts to cut back smoking and aim to cease completely. - Attend scheduled cardiology follow-up in August. - Follow planned comprehensive blood work and screenings as advised. Discussion I discussed with the patient her current diagnoses and management plans. Emphasized the importance of continued cardiovascular follow-up care, especially with her known left ventricular dysfunction. We reviewed smoking as a significant risk factor impacting both cardiovascular and pulmonary health. Presented the pulmonary function test as a critical assessment for potential emphysema progression and its implications for her cardiac health. Encouraged the patient to continue efforts to reduce smoking and discussed associated benefits. Reinforced the necessity of scheduled visits and follow-up labs/tests to monitor her conditions. [facility] Medical History Smoker CAD (coronary artery disease) Lipid disorder Surgical History Hx of tubal ligation H/O colonoscopy Family History Father Colon cancer Sister Breast cancer Family/Other Breast cancer Social History Housing: House Patient Tobacco Use Status: Current everyday Tobacco user Tobacco use type: Cigarette Cigarette Packs Per Day: 1 Cigarettes Per Day: 20.0 Years Smoked: 30 years Packs Per Year: 0 Packs per year/per ci.00 e-Cigarette/Vaping Use: Never Used Current occupational status: unemployed Cognitive needs: No Hearing needs: No Vision needs: Yes Female Reproductive History Menstrual Age of Menarche: 13 Questionnaire PHQ-9 Over the last 2 weeks, how often have you been bothered by any of the following problems? 1. Little interest or pleasure in doing things: not at all 2. Feeling down, depressed, or hopeless: not at all 3. Trouble falling or staying asleep, or sleeping too much: not at all 4. Feeling tired or having little energy: not at all 5. Poor appetite or overeating: not at all 6. Feeling bad about yourself - or that you are a failure or have let yourself or your family down: not at all 7. Trouble concentrating on things, such as reading the newspaper or watching television: not at all 8. Moving or speaking so slowly that other people could have noticed. Or the opposite - being so fidgety or restless that you have been moving around a lot more than usual: not at all 9. Thoughts that you would be better off or of hurting yourself in some way: not at all Total score: 0 Depression Screening Interpretation: Negative Depression Screening Done: Yes 76112 - PHQ-9 Billing: Yes Source: Developed by Drs. Justo Moise, Deana Zapata, Marc Stearns and colleagues, with an educational alex from [employer]. Thrive Questionnaire Date Thrive assessed: 05/14/24 I am a: Patient What is your living situation today?: I have a steady place to live Within the past 12 months, did the food you bought not last and you didn't have the money to get more?: Never true Within the past 12 months, did you worry whether your food would run out before you got money to buy more?: Never true Do you have trouble paying for medicines?: No Do you have trouble getting transportation to medical appointments?: No Do you have trouble paying your heating and electricity bill?: No Do you have trouble taking care of your child, family member or friend?: No Do you have trouble with day-to-day activities such as bathing, preparing meals, shopping, managing finances, etc.?: No Are you currently unemployed and looking for a job?: No Are you interested in more education?: No Please select the resources that you would like help with: None Currently or been in a relationship where the following occur: No concerns reported THRIVE Score: 0 AUDIT C Alcohol Use Questionnaire (AUDIT-C) 1. How often do you have a drink containing alcohol?: Monthly or less 2. How many drinks containing alcohol do you have on a typical day when you are drinking?: 3 or 4 3. How often do you have six or more drinks on one occasion?: Never Total Score: 2 Score Reviewed/Action Taken: Yes CORNELIA-7 AMB Questionnaire CORNELIA-7 Date CORNELIA - 7 assessed: 05/14/24 Feeling nervous, anxious, or on edge: 0 = Not at all Not being able to stop or control worryin = Not at all Worrying too much about different things: 0 = Not at all Trouble relaxin = Not at all Being so restless that it is hard to sit still: 0 = Not at all Becoming easily annoyed or irritable: 0 = Not at all Feeling afraid as if something awful might happen: 0 = Not at all Total CORNELIA-7 score (0-4 normal; 5-9 mild; 10-14 moderate; 15-21 severe): 0 Source: Developed by Drs. Justo Moise, Deana Zapata, Marc Stearns and colleagues, with an educational alex from [employer]. CORNELIA-7 Assessment Billing CORNELIA-7 Assessment Tool: CORNELIA-7 Assessment 49969 Review of Systems Const Denies chills and Denies fever(s) ENT Denies epistaxis and Denies nasal discharge Card Denies chest pain Resp Denies chest congestion, Denies cough and Denies hemoptysis GI Denies diarrhea and Denies nausea Skin/Breast Denies rash Neuro Reports no additional complaints Psych Reports no additional complaints Endo Reports no additional complaints Physical exam (Primary Care) Vital Signs: Last Vital Signs Pulse 76 05/14/24 09:52 BP 136/72 05/14/24 09:52 Pulse Ox 97 05/14/24 09:52 Oxygen Delivery Method Room Air 05/14/24 09:52 BMI result Body Mass Index 21.3 Tobacco/Smoking Status: Tobacco use Status Tobacco use date assessed 05/14/24 05/14/24 09:54 Patient Tobacco Use Status Current everyday Tobacco 05/14/24 09:54 Tobacco use type Cigarette 05/14/24 09:54 e-Cigarette/Vaping Use Never Used 05/14/24 09:54 PHQ-9: PHQ-9 Score PHQ-9: Total score 0 05/14/24 10:17 Depression Screening Interpretation: Negative Thrive Assessment: Date of Thrive Assessment Date Thrive assessed 05/14/24 05/14/24 09:54 Currently or been in a relationship where the following occur: No concerns reported Const General: cooperative, comfortable and no acute distress Orientation/consciousness: patient oriented x3 HENMT Head: Yes normocephalic Eyes General: appearance normal, both eyes and all related structures Neck Neck: Yes supple Resp Effort & Inspection: normal respiratory effort, no cough and no stridor Cardio Rhythm: regular rhythm Heart sounds: S1 normal heart sound present and S2 normal heart sound present Skin General skin exam: turgor normal Neuro General: patient oriented x3, tone normal and moves all extremities Extrem Right lower extremity: no edema Left lower extremity: no edema Coding Level of Care Code Est Pt Level 4 (97304) Complex EM visit Add On G2211 Diagnoses Lipid disorder E78.9 Impaired fasting blood sugar R73.01 Tobacco dependence F17.200 Chronic constipation K59.09 Ventricular bigeminy I49.8 Age related osteoporosis, unspecified pathological fracture presence M81.0 Osteoporosis type: age-related Presence of current pathological fracture: unspecified Cardiomyopathy, unspecified type I42.9 Cardiomyopathy type: unspecified Additional Codes CORNELIA-7 Assessment Billing - CORNELIA-7 Assessment Tool: CORNELIA-7 Assessment 63292 ([id number]) PHQ-9 - 99586 - PHQ-9 Billing: Yes ([id number]) Assessment & Plan Assessment & Plan (1) Lipid disorder: Code(s): E78.9 - Disorder of lipoprotein metabolism, unspecified Category: Medical (2) Impaired fasting blood sugar: Code(s): R73.01 - Impaired fasting glucose Category: Medical (3) Tobacco dependence: Code(s): F17.200 - Nicotine dependence, unspecified, uncomplicated Category: Medical (4) Chronic constipation: Code(s): K59.09 - Other constipation Category: Medical (5) Ventricular bigeminy: Code(s): I49.8 - Other specified cardiac arrhythmias Category: Medical (6) Osteoporosis: Code(s): M81.0 - Age-related osteoporosis without current pathological fracture Category: Medical Qualifiers: Osteoporosis type: age-related Presence of current pathological fracture: unspecified Qualified Code(s): M81.0 - Age-related osteoporosis without current pathological fracture (7) Cardiomyopathy: Code(s): I42.9 - Cardiomyopathy, unspecified Category: Medical Qualifiers: Cardiomyopathy type: unspecified Qualified Code(s): I42.9 - Cardiomyopathy, unspecified Plan The patient is a 68-year-old female presenting with a lipid disorder for a 6-month follow-up. She is currently managed on atorvastatin 80 mg for hyperlipidemia and metoprolol 25 mg, prescribed by her collection systems administrator. She is also under continuous cardiology care, having had a recent cardiology visit on May 05, with tests and assessments showing normal results. Her cardiovascular health was last evaluated in October during her physical exam and via a stress test conducted in December. The December stress test indicated frequent premature ventricular contractions, ventricular bigeminy, and couplets but was otherwise normal, without chest discomfort. Her echocardiogram from November revealed mild to moderate left ventricular systolic dysfunction with grade 1 diastolic dysfunction. She continues to smoke one pack of cigarettes per day, despite efforts to reduce to half a pack. Previous lung cancer screening noted calcification of coronary vessels in 2017, sparking continued cardiology assessments. She reports normal breathing without the need for inhalers and has agreed to undergo further pulmonary function testing to evaluate lung capacity due to her smoking history. Smoking: Currently smokes one pack of cigarettes per day; attempting to reduce to half a pack. - No specific reports on employment, housing, or other social determinants. Echocardiogram (November): Mild to moderate LV systolic dysfunction, grade 1 diastolic dysfunction, normal cardiac valves, no pericardial effusion. - Stress Test (December): Exercise duration was 8 minutes 31 seconds, frequent PVCs, ventricular bigeminy and couplet, normotensive response to exercise, with nuclear images pending. - Laboratory: October - Normal WBC, hemoglobin, and kidney function. December - Normal magnesium (2.1) and TSH (1.73). Plan Lipid Disorder: Continue atorvastatin 80 mg as current management is effective. Monitor lipid profile at next follow-up. - Left Ventricular Systolic Dysfunction: Continue follow-up with cardiology, next visit in August. - Smoking-related Lung Disease Emphysema): Schedule pulmonary function test to assess lung function. Encourage smoking cessation, interlinking lung health with heart condition management. Patient's instructions Continue current medication regimen: atorvastatin and metoprolol. - Schedule and complete the pulmonary function test. - Efforts to cut back smoking and aim to cease completely. - Attend scheduled cardiology follow-up in August. - Follow planned comprehensive blood work and screenings as advised. Discussion I discussed with the patient her current diagnoses and management plans. Emphasized the importance of continued cardiovascular follow-up care, especially with her known left ventricular dysfunction. We reviewed smoking as a significant risk factor impacting both cardiovascular and pulmonary health. Presented the pulmonary function test as a critical assessment for potential emphysema progression and its implications for her cardiac health. Encouraged the patient to continue efforts to reduce smoking and discussed associated benefits. Reinforced the necessity of scheduled visits and follow-up labs/tests to monitor her conditions. Orders: Orders Complete Blood Count Auto Diff Today E78.9 - Disorder of lipoprotein metabolism, unspecified, F17.200 - Nicotine dependence, unspecified, uncomplicated, I42.9 - Cardiomyopathy, unspecified, I49.8 - Other specified cardiac arrhythmias, K59.09 - Other constipation, M81.0 - Age-related osteoporosis without current pathological fracture, R73.01 - Impaired fasting glucose PFT pulmonary function test Today F17.200 - Nicotine dependence, unspecified, uncomplicated Comprehensive [place]. Panel Fast Today E78.9 - Disorder of lipoprotein metabolism, unspecified, F17.200 - Nicotine dependence, unspecified, uncomplicated, I42.9 - Cardiomyopathy, unspecified, I49.8 - Other specified cardiac arrhythmias, K59.09 - Other constipation, M81.0 - Age-related osteoporosis without current pathological fracture, R73.01 - Impaired fasting glucose Lipid Panel Today E78.9 - Disorder of lipoprotein metabolism, unspecified, F17.200 - Nicotine dependence, unspecified, uncomplicated, I42.9 - Cardiomyopathy, unspecified, I49.8 - Other specified cardiac arrhythmias, K59.09 - Other constipation, M81.0 - Age-related osteoporosis without current pathological fracture, R73.01 - Impaired fasting glucose
== END 2024-05-14 12:16 | disposition home or self-care (01) ==
PROVIDERS: PCP Internal Medicine; Visit Provider Internal Medicine
DX: E78.9 Disorder of lipoprotein metabolism, unspecified (principal); R73.01 Impaired fasting glucose; I42.9 Cardiomyopathy, unspecified; F17.200 Nicotine dependence, unspecified, uncomplicated; K59.09 Other constipation; I49.8 Other specified cardiac arrhythmias; M81.0 Age-related osteoporosis without current pathological fracture

== ENCOUNTER → 2024-05-14 09:49 | Outpatient (BNVA) | payer MEDICARE, SELFPAY | PROVIDERS: PCP Internal Medicine; Visit Provider Internal Medicine | DX: E78.9 Disorder of lipoprotein metabolism, unspecified (principal); R73.01 Impaired fasting glucose; K59.09 Other constipation; I49.8 Other specified cardiac arrhythmias; M81.0 Age-related osteoporosis without current pathological fracture; I42.9 Cardiomyopathy, unspecified; F17.200 Nicotine dependence, unspecified, uncomplicated | CPT/HCPCS: 96127; 99212 ==

== ENCOUNTER → 2024-08-06 08:49 | Outpatient (REF) | payer MEDICARE, SELFPAY ==
--- NOTE | 2024-08-06 08:52 | CA_ITS ---
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 There is normal left ventricular wall thickness. The left ventricular systolic function is low normal. The visually estimated ejection fraction is between 50-55%. Spectral Doppler is indicative of an impaired relaxation filling pattern. E/E prime ratio is between 8 and 15 consistent with indeterminate filling pressures. Prior Study Comparison Changes noted compared to prior study dated: 12/19/2023. LV ejection fraction is marginally improved Measurements 2D Linear Measurements IVSd: 0.94 0.6-0.9/0.6-1.0 cm LVIDd: 5.00 3.9-5.3/4.2-5.9 cm LVIDd Index: 3.23 2.4-3.2/2.2-3.1 cm/m2 LVIDs: 3.30 2.0-3.6 cm LVPWd: 0.75 0.7-1.1 cm LA Diam: 3.30 2.7-3.8/3.0-4.0 cm LAIDs Index: 2.13 1.5-2.3 cm/m2 LV Mass: 180.70 67-162/88-224 g LV Mass Index: 116.58 43-95/49-115 g/m2 LVOT Diam: 2.10 3.0+(-)1.3 cm 2D Systolic Function EF 4C: 48.80 >55% EF 2C: 55.80 >55% EF BiP: 51.90 >55% Mitral Valve MV Pk E: 0.39 MV PK A: 0.51 MV Decel Time: 257.00 E/A: 0.80 E'Lateral: 4.03 E'Medial: 2.94 E/E' Med: 13.30 E/E' Lat: 9.70 PHT: 75.00 MVA PHT: 2.93 Decel Duval: 1.52 LVOT LVOT Pk Owen: 0.69 LVOT Mn Owen: 0.51 LVOT VTI: 0.14 LVOT Pk Grad: 2.00 LVOT Mn Grad: 1.00 LVOT Diam: 2.10 LVOT Area: 3.46 Diastolic Function MV Pk E: 0.39 MV Pk A: 0.51 E/A: 0.80 E'Medial: 2.94 E/E' Med: 13.30 E' Laterial: 4.03 E/E' Lat: 9.70 Tricuspid Valve RA Press: 3.00 Updated in Other Vendor System with Status of Final Fredi Camilo MD electronically signed on 08/07/2024 12:22:59 PM with status of Final
== END ==
LOC: HO.CARD 08:49
PROVIDERS: PCP Internal Medicine; Visit Provider Nurse Practitioner Family
DX: I42.9 Cardiomyopathy, unspecified (principal); I49.3 Ventricular premature depolarization
CPT/HCPCS: 93225; 93308

== ENCOUNTER → 2024-08-06 08:52 | Outpatient (BNV) | payer MEDICARE, SELFPAY | PROVIDERS: PCP Internal Medicine; Visit Provider Internal Medicine Cardiovascular Disease | DX: I49.3 Ventricular premature depolarization (principal) | CPT/HCPCS: 93227; 93308; 93321 ==

== ENCOUNTER 2024-09-19 06:01 | Outpatient (REF) | payer MEDICARE, SELFPAY ==
[2024-09-19 10:20] LABS: MANUAL DIFF FLAG NO
[2024-09-19 10:23] LABS: Basophils Absolute Auto 0.1 X10*3/uL (0.0-0.2); Basophils Percent Auto 0.9 % (0-2); Eosinophils Absolute Auto 0.2 X10*3/uL (0.0-0.4); Eosinophils Percent Auto 1.9 % (0-4); Hematocrit 40.5 % (37.0-47.0); Hemoglobin 13.3 g/dl (12.0-16.0); Imm Gran Abs Auto 0.03 X10*3/uL (0.00-0.03); Imm Gran Pct Auto 0.4 % (0.0-0.4); Lymphocytes Absolute Auto 3.6 X10*3/uL (1.2-4.9); Lymphocytes Percent Auto 44.6 % (20-40); Mean Corpuscular HGB Conc 32.8 g/dl (31.0-35.0); Mean Corpuscular Hemoglobin 30.2 pg (27.0-33.0); Mean Corpuscular Volume 91.8 fL (80.0-98.0); Mean Platelet Volume 10.2 fL (9.4-12.3); Monocytes Absolute Auto 0.6 X10*3/uL (0.1-1.2); Monocytes Percent Auto 7.1 % (2-11); Neutrophils Absolute Auto 3.6 x10*3/uL (2.0-8.3); Neutrophils Percent Auto 45.1 % (45-73); Platelet Count 321 X10*3/uL (160-400); Red Blood Count 4.41 X10*6/uL (4.20-5.50); Red Cell Distribution Width 13.7 % (11.0-16.0)
[2024-09-19 11:34] LABS: Alanine Aminotransferase 18 U/L (0-31); Albumin Level 3.8 g/dL (3.5-5.0); Alkaline Phosphatase 97 U/L (39-117); Anion Gap 8 (12-20); Aspartate Amino Transferase 24 U/L (5-31); Bilirubin Total 0.3 mg/dL (0.0-1.0); Blood Urea Nitrogen 16 mg/dL (9-16); Calcium 9.4 mg/dL (8.4-10.2); Carbon Dioxide 26 mmol/L (22-29); Chloride 111 mmol/L (96-108); Cholesterol 117 mg/dL (<200); Estimated Glomerular Filt Rate > 60; Glucose Fasting 94 mg/dL (60-99); HDL Cholesterol 28 mg/dL (>40); LDL Cholesterol Calculated 70 mg/dL (<100); Sodium 141 mmol/L (135-145); Total Protein 6.7 g/dL (6.5-8.0); Triglycerides 96 mg/dL (<150)
== END 2024-09-19 06:02 | disposition home or self-care (01) ==
LOC: HO.HMGCLDS 06:01
PROVIDERS: PCP Internal Medicine; Visit Provider Internal Medicine
DX: E78.9 Disorder of lipoprotein metabolism, unspecified (principal); R73.01 Impaired fasting glucose; F17.200 Nicotine dependence, unspecified, uncomplicated; K59.09 Other constipation; I49.8 Other specified cardiac arrhythmias; M81.0 Age-related osteoporosis without current pathological fracture; I42.9 Cardiomyopathy, unspecified
CPT/HCPCS: 36415; 80053; 80061; 85025

== ENCOUNTER 2024-09-29 07:44 | Outpatient (REF) | payer MEDICARE, SELFPAY | END 2024-09-29 07:45 | disposition home or self-care (01) | LOC: HO.MAMMO 07:44 | PROVIDERS: Visit Provider Internal Medicine | DX: Z12.31 Encounter for screening mammogram for malignant neoplasm of breast (principal) | CPT/HCPCS: 77063; 77067 ==

== ENCOUNTER → 2024-09-29 08:00 | Outpatient (BNV) | payer MEDICARE, SELFPAY | PROVIDERS: Visit Provider Internal Medicine | DX: Z12.31 Encounter for screening mammogram for malignant neoplasm of breast (principal) | CPT/HCPCS: 77063; 77067 ==

== ENCOUNTER 2024-09-30 09:33 | Outpatient (AMB) | payer MEDICARE, SELFPAY ==
[2024-09-30 09:41] VITALS: BP 114/72; PULSE 70; BMI 21.9
--- NOTE | 2024-09-30 09:41 | A.OFFVIS_ITS ---
Vital Signs 09/30/24 09:41 Height 5 ft 3 in Weight 123 lb 7.342 oz BMI 21.9 BP 114/72 Blood Pressure Location Rt brachial Position Sitting Pulse 70 Pulse Source Pulse Oximeter Intake Visit Reasons: 4 mth s/p ehco Sign Installer Required: No Allergies No Known Allergies Allergy (Verified 09/30/24 09:43) Medication List - Last Reconciled 09/30/24 by Mara Dutta NP-C alprazolam 0.25 mg PO DAILY PRN 15 days aspirin (Adult Low Dose Aspirin) 81 mg PO DAILY 90 days atorvastatin 80 mg PO QPM clobetasol 0.05% 1 appl topical DAILY 2 weeks metoprolol succinate ER 25 mg PO DAILY HPI HPI 4 mth s/p ehco: Details: Kaur is a 68-year-old female past medical history of hyperlipidemia, smoking, nonobstructive coronary artery disease, frequent PVCs, mild cardiomyopathy who presents for follow-up. Today she reports that she has been feeling well since her last visit in April. She has no concerning symptoms. She has not had any chest discomfort at rest or with activity. She does not notice heart palpitations. No shortness of breath, lightheadedness, presyncope, syncope, falls, PND, orthopnea or edema. She reports good activity tolerance and continues to care for her young grandchildren. She smokes 1 pack of cigarettes per day. She has reduced her caffeine beverages to 1-2 daily. She has been taking her metoprolol consistently. [facility] Medical History Smoker CAD (coronary artery disease) Lipid disorder Surgical History Hx of tubal ligation H/O colonoscopy Family History Father Colon cancer Sister Breast cancer Family/Other Breast cancer Social History Housing: House Patient Tobacco Use Status: Current everyday Tobacco user Tobacco use type: Cigarette Cigarette Packs Per Day: 1 Cigarettes Per Day: 20.0 Years Smoked: 30 years e-Cigarette/Vaping Use: Never Used Current occupational status: unemployed Cognitive needs: No Hearing needs: No Vision needs: Yes Female Reproductive History Menstrual Age of Menarche: 13 Review of Systems Const All systems reviewed & are unremarkable except as noted in HPI and below ENT Denies dizziness Card Denies chest pain, Denies chest pain at rest, Denies chest pain with activity, Denies rapid heart rate, Denies pedal edema, Denies edema, Denies leg edema, Denies lightheadedness, Denies palpitations, Denies dyspnea, Denies dyspnea on exertion and Denies orthopnea Resp Denies cough, Denies dyspnea and Denies dyspnea on exertion GI Denies hematochezia and Denies change in stool character Musc Denies abnormal gait, Denies limited range of motion, Denies muscle cramps, Denies muscle weakness, Denies numbness, Denies radiating pain into limb, Denies stiffness and Denies tingling Neuro Denies abnormal gait, Denies dizziness, Denies numbness and Denies tingling Endo Denies palpitations Physical Exam Vital Signs: Last Vital Signs Pulse 70 09/30/24 09:41 BP 114/72 09/30/24 09:41 BMI result Body Mass Index 21.9 Const General: cooperative, healthy appearing, comfortable and no acute distress Orientation/consciousness: patient oriented x3 Neck Neck: Yes normal visual inspection and Yes no JVD Resp Effort & Inspection: normal respiratory effort Auscultation: clear to auscultation bilaterally, no crackles, no rales, no rhonchi and no wheezes Cardio Jugular venous distension: no JVD Rate: regular rate Rhythm: regular rhythm Heart sounds: S1 normal heart sound present, S2 normal heart sound present, no murmurs and no rubs Neuro General: patient oriented x3 Extrem General: Yes normal to inspection, No no pedal edema and No calf tenderness Psych Appearance: grossly normal Mental Status: mental status grossly normal Speech and movement: Normal speech and movement present Assessment & Plan Assessment & Plan (1) PVCs (premature ventricular contractions): Code(s): I49.3 - Ventricular premature depolarization Category: Medical Plan: History of frequent PVCs with mild cardiomyopathy that is treated metoprolol XL. Holter monitor was done 12/19/2023 for 3 days showing sinus rhythm with average heart rate 73, frequent PVCs, 8.6%, one 3 beat VT. An echocardiogram was done on 12/19/2023 showing EF 40-45%, grade 1 diastolic dysfunction, normal valves. A nuclear stress test was done on 01/09/2024 with exercise 8.5 minutes with shortness of breath and frequent PVCs, normal myocardial perfusion imaging. On the metoprolol XL and with a reduction in her caffeinated beverages she has had a repeat reduction in her PVC burden down to 1.4% on most recent Holter monitor. Echo done 08/06/2024 now shows EF 50-55%. She denies heart palpitations and has no signs of heart failure on examination. Continue to limit caffeine intake. Continue metoprolol XL 25 mg daily. Cardiology follow-up in 1 year, sooner if needed. (2) Coronary artery disease: Code(s): I25.10 - Atherosclerotic heart disease of [place] coronary artery without angina pectoris Category: Medical Plan: History of nonobstructive CAD. Coronary calcifications seen on CT scan for lung cancer screening back in 2018. No anginal symptoms. Nuclear stress test normal. (3) Cardiomyopathy: Code(s): I42.9 - Cardiomyopathy, unspecified Category: Medical Qualifiers: Cardiomyopathy type: unspecified Qualified Code(s): I42.9 - Cardiomyopathy, unspecified Plan: Mild nonischemic cardiomyopathy in the setting of frequent PVCs. EF improved to low normal with control of PVCs using beta-bull. (4) Tobacco dependence: Code(s): F17.200 - Nicotine dependence, unspecified, uncomplicated Category: Medical Plan: Continues to smoke 1 pack per day. She denies any COPD. She says her breathing is normal. Benefit of smoking cessation reviewed with her. Plan Time spent on chart review, documentation, interview and assessment Coding Level of Care Code Est Pt Level 4 (23476) Complex EM visit Add On G2211 Diagnoses PVCs (premature ventricular contractions) I49.3 Coronary artery disease I25.10 Cardiomyopathy, unspecified type I42.9 Cardiomyopathy type: unspecified Tobacco dependence F17.200 Time Spent (min) 30
== END 2024-09-30 10:07 | disposition home or self-care (01) ==
LOC: HO.HCS 09:33
PROVIDERS: PCP Internal Medicine; Visit Provider Nurse Practitioner Family
DX: I49.3 Ventricular premature depolarization (principal); I25.10 Atherosclerotic heart disease of native coronary artery without angina pectoris; I42.9 Cardiomyopathy, unspecified; F17.200 Nicotine dependence, unspecified, uncomplicated
CPT/HCPCS: 99214; G2211

== ENCOUNTER → 2024-09-30 09:33 | Outpatient (BNVA) | payer MEDICARE, SELFPAY | PROVIDERS: PCP Internal Medicine; Visit Provider Nurse Practitioner Family | DX: I49.3 Ventricular premature depolarization (principal); I25.10 Atherosclerotic heart disease of native coronary artery without angina pectoris; I42.9 Cardiomyopathy, unspecified; F17.210 Nicotine dependence, cigarettes, uncomplicated | CPT/HCPCS: 99212 ==

== ENCOUNTER 2024-11-28 09:13 | Outpatient (AMB) | payer MEDICARE, SELFPAY ==
--- NOTE | 2024-11-28 09:16 | A.OFFPC_ITS ---
Vital Signs 11/28/24 09:18 Height 5 ft 3 in Weight 121 lb 4 oz BMI 21.5 BP 110/72 Blood Pressure Location Lt brachial Position Sitting Pulse 74 Pulse Source Pulse Oximeter Temp 98.4 F Temp Source Oral Pulse Oximetry (%) 96 Oxygen Delivery Method Room Air Intake Visit Reasons: Annual uri from 10/30/23 Allergies No Known Allergies Allergy (Verified 09/30/24 09:43) Medication List - Last Reconciled 11/28/24 by Norman Suh MD alprazolam 0.25 mg PO DAILY PRN 15 days aspirin (Adult Low Dose Aspirin) 81 mg PO DAILY 90 days atorvastatin 80 mg PO QPM clobetasol 0.05% 1 appl topical DAILY 2 weeks metoprolol succinate ER 25 mg PO DAILY Tobacco use date assessed: 05/14/24 Dental Screening Dental Screen Date: 05/14/24 HPI Annual uri from 10/30/23 HPI Details PE - The patient is a 68-year-old female pr esenting with primary care follow-up visit. and Physical exam - The patient reports swelling in the [facility] ankle that she noticed a week ago, characterized by puffiness and tenderness. The swelling worsens towards the end of the day and improves with walking. She denies any injury to the ankle. - The patient?s laboratory tests from [facility], including electrolytes, kidney function, liver enzymes, cholesterol, and CBC, returned normal results. - The patient had a colonoscopy in 2021, which revealed a polyp that was removed. The follow-up colonoscopy is planned for 2026. - The patient experiences itching and ir ritation due to seborrheic dermatitis that looks like psoriasis. - She has been on atorvastatin for pasquale sterol management and requires regular liver function monitoring due to the medication's potential effects. Cardiomypathy treated by Cardio, visit once a year [facility] [place] Medical History: - Osteoarthritis - Psoriasis - Peripheral edema related to potential cardiovascular or hepatic cause - Prediabetes - Osteoporosis Surgical History: - Polypectomy during colonoscopy in 2021 Social History: - Patient is a current smoker - also smokes Family History: - Denies family history of diabetes Health Maintenance - Mammogram completed in September 2022 - Colonoscopy completed in 2021, follow- up scheduled for 2026 - Diagnostics suggest repeat labs for at orvastatin monitoring, expected in February - Vitamin D supplementation discussed fo r osteoporosis management - Vaccines discussed include the need fo r tetanus, pneumonia, and shingles immunizations Medications - Atorvastatin 80 mg for cholesterol man agement - Metoprolol 25 mg for cardiac condition s Diagnostic results - Labs from August: Electrolytes, kidney function tests, liver enzymes, cholesterol levels, and CBC ? normal - Colonoscopy in 2021: Polyp removed, fo llow-up in 2026 - Fasting blood glucose was 103, indicat ing prediabetic status Patient Instructions - Continue with current medication regim en - Vitamin D supplementation with 1000 un its daily - Maintain regular visits to monitor the side effects of atorvastatin - Follow-up with vaccinations at a pharm acy - Avoid picking at skin affected by scal ly rash - Consider lifestyle changes to manage p rediabetes and reduce smoking - start Fosamax, stay up right for 30 mi n after, take on empty stomach once a week - stop smoking - f/u 3 M since fosmax started and to f. u on smoking Review of Systems - General: No fever no chills - Neurological: No headaches no dizzin ess - Ear nose throat: No sore throat no hearing difficulty no ear pain - Cardiovascular: No syncope, no chest pain, no palpitations - Gastrointestinal: No nausea vomiting or diarrhea - Endocrine: No polyuria polydipsia no heat intolerance - Genitourinary: No dysuria - Skin: No new complaints Physical Exam General: Cooperative, healthy appearing, comfortable, no acute distress Orientation: Patient oriented x3 Limitations: none Head: Normal to inspection, psoriasis noted on scalp Ears: Within normal limit visually, slight crustiness noted Nose: Normal external nose present Face and sinus: Normal facial exam Eyes: Appearance normal, extraocular movement intact pupils reactive Neck: Normal visual inspection and supple Respiratory: Normal respiratory effort and able to speak in complete sentences. Clear to auscultation, no stridor Cardiovascular: S1 and S2 RRR Breast exam declined GI: Normal to inspection. Soft to palpation and nontender Skin: Turgor normal, no acute findings, scally spot noted on scalp Neuro: Patient oriented x3, motor sensory intact, balance intact, tandem pass Extremities: no swelling at this time [facility] Medical History (Updated 11/28/24 @ 10:01 by Norman Suh MD) Smoker CAD (coronary artery disease) Lipid disorder Surgical History (Updated 10/28/24 @ 09:18 by МАРИЯ Fabian) Hx of tubal ligation H/O colonoscopy (~08/2021) Family History Father Colon cancer Sister Breast cancer Family/Other Breast cancer Social History Housing: House Patient Tobacco Use Status: Current everyday Tobacco user Tobacco use type: Cigarette Cigarette Packs Per Day: 1 Cigarettes Per Day: 20.0 Years Smoked: 30 years e-Cigarette/Vaping Use: Never Used Current occupational status: unemployed Cognitive needs: No Hearing needs: No Vision needs: Yes Female Reproductive History Menstrual Age of Menarche: 13 Questionnaire PHQ-9 Over the last 2 weeks, how often have you been bothered by any of the following problems? 1. Little interest or pleasure in doing things: not at all 2. Feeling down, depressed, or hopeless: not at all 3. Trouble falling or staying asleep, or sleeping too much: not at all 4. Feeling tired or having little energy: not at all 5. Poor appetite or overeating: not at all 6. Feeling bad about yourself - or that you are a failure or have let yourself or your family down: not at all 7. Trouble concentrating on things, such as reading the newspaper or watching television: not at all 8. Moving or speaking so slowly that other people could have noticed. Or the opposite - being so fidgety or restless that you have been moving around a lot more than usual: not at all 9. Thoughts that you would be better off or of hurting yourself in some way: not at all Total score: 0 Source: Developed by Drs. Justo Moise, Deana Zapata, Marc Stearns and colleagues, with an educational alex from [employer]. Thrive Questionnaire Date Thrive assessed: 11/21/24 I am a: Patient What is your living situation today?: I have a steady place to live Within the past 12 months, did the food you bought not last and you didn't have the money to get more?: Never true Within the past 12 months, did you worry whether your food would run out before you got money to buy more?: Never true Do you have trouble paying for medicines?: No Do you have trouble getting transportation to medical appointments?: No Do you have trouble paying your heating and electricity bill?: No Do you have trouble taking care of your child, family member or friend?: No Do you have trouble with day-to-day activities such as bathing, preparing meals, shopping, managing finances, etc.?: No Are you currently unemployed and looking for a job?: No Are you interested in more education?: No Please select the resources that you would like help with: None Currently or been in a relationship where the following occur: No concerns reported THRIVE Score: 0 AUDIT C Alcohol Use Questionnaire (AUDIT-C) 1. How often do you have a drink containing alcohol?: Monthly or less 2. How many drinks containing alcohol do you have on a typical day when you are drinking?: 3 or 4 3. How often do you have six or more drinks on one occasion?: Never Total Score: 2 CORNELIA-7 AMB Questionnaire CORNELIA-7 Date CORNELIA - 7 assessed: 05/14/24 Feeling nervous, anxious, or on edge: 0 = Not at all Not being able to stop or control worryin = Not at all Worrying too much about different things: 0 = Not at all Trouble relaxin = Not at all Being so restless that it is hard to sit still: 0 = Not at all Becoming easily annoyed or irritable: 0 = Not at all Feeling afraid as if something awful might happen: 0 = Not at all Total CORNELIA-7 score (0-4 normal; 5-9 mild; 10-14 moderate; 15-21 severe): 0 Source: Developed by Drs. Justo Moise, Deana Zapata, Marc Stearns and colleagues, with an educational alex from [employer]. Physical exam (Primary Care) Vital Signs: Last Vital Signs Temp 98.4 F 11/28/24 09:18 Pulse 74 11/28/24 09:18 BP 110/72 11/28/24 09:18 Pulse Ox 96 11/28/24 09:18 Oxygen Delivery Method Room Air 11/28/24 09:18 BMI result Body Mass Index 21.5 Tobacco/Smoking Status: Tobacco use Status Tobacco use date assessed 05/14/24 11/28/24 09:22 Patient Tobacco Use Status Current everyday Tobacco 11/28/24 09:22 Tobacco use type Cigarette 11/28/24 09:22 e-Cigarette/Vaping Use Never Used 11/28/24 09:22 Are you ready to quit: No Tobacco cessation counseling provided: Yes Relapse Prevention: discussed the importance of a supportive environment CPT code: 86171 - 4-10 Minutes PHQ-9: PHQ-9 Score PHQ-9: Total score 0 11/28/24 09:22 Thrive Assessment: Date of Thrive Assessment Date Thrive assessed 11/21/24 11/28/24 09:22 Currently or been in a relationship where the following occur: No concerns reported Coding Level of Care Code Est Pt Level 3 (52805) Est Pt Prev Care >65y(49883) Diagnoses Encounter for general adult medical examination with abnormal findings Z00.01 Age related osteoporosis, unspecified pathological fracture presence M81.0 Osteoporosis type: age-related Presence of current pathological fracture: unspecified Tobacco dependence F17.200 Right ankle swelling M25.471 Laterality: right PVCs (premature ventricular contractions) I49.3 Cardiomyopathy, unspecified type I42.9 Cardiomyopathy type: unspecified Impaired fasting blood sugar R73.01 Seborrheic dermatitis L21.9 Additional Codes Vital Signs *Quality* - CPT code: 19189 - 4-10 Minutes ([id number]) Assessment & Plan Assessment & Plan (1) Encounter for general adult medical examination with abnormal findings: Code(s): Z00.01 - Encounter for general adult medical examination with abnormal findings Category: Medical (2) Osteoporosis: Code(s): M81.0 - Age-related osteoporosis without current pathological fracture Category: Medical Qualifiers: Osteoporosis type: age-related Presence of current pathological fracture: unspecified Qualified Code(s): M81.0 - Age-related osteoporosis without current pathological fracture (3) Tobacco dependence: Code(s): F17.200 - Nicotine dependence, unspecified, uncomplicated Category: Medical (4) Ankle swelling: Code(s): M25.473 - Effusion, unspecified ankle Category: Medical Qualifiers: Laterality: right Qualified Code(s): M25.471 - Effusion, right ankle (5) PVCs (premature ventricular contractions): Code(s): I49.3 - Ventricular premature depolarization Category: Medical (6) Cardiomyopathy: Code(s): I42.9 - Cardiomyopathy, unspecified Category: Medical Qualifiers: Cardiomyopathy type: unspecified Qualified Code(s): I42.9 - Cardiomyopathy, unspecified (7) Impaired fasting blood sugar: Code(s): R73.01 - Impaired fasting glucose Category: Medical (8) Seborrheic dermatitis: Code(s): L21.9 - Seborrheic dermatitis, unspecified Category: Medical Plan PE - The patient is a 68-year-old female presenting with primary care follow-up visit. and Physical exam - The patient reports swelling in the right ankle that she noticed a week ago, characterized by puffiness and tenderness. The swelling worsens towards the end of the day and improves with walking. She denies any injury to the ankle. - The patient?s laboratory tests from August, including electrolytes, kidney function, liver enzymes, cholesterol, and CBC, returned normal results. - The patient had a colonoscopy in 2021, which revealed a polyp that was removed. The follow-up colonoscopy is planned for 2026. - The patient experiences itching and irritation due to seborrheic dermatitis that looks like psoriasis. - She has been on atorvastatin for cholesterol management and requires regular liver function monitoring due to the medication's potential effects. Cardiomypathy treated by Cardio, visit once a year [facility] [place] Medical History: - Osteoarthritis - Psoriasis - Peripheral edema related to potential cardiovascular or hepatic cause - Prediabetes - Osteoporosis Surgical History: - Polypectomy during colonoscopy in 2021 Social History: - Patient is a current smoker - also smokes Family History: - Denies family history of diabetes Health Maintenance - Mammogram completed in September 2022 - Colonoscopy completed in 2021, follow-up scheduled for 2026 - Diagnostics suggest repeat labs for atorvastatin monitoring, expected in February - Vitamin D supplementation discussed for osteoporosis management - Vaccines discussed include the need for tetanus, pneumonia, and shingles immunizations Medications - Atorvastatin 80 mg for cholesterol management - Metoprolol 25 mg for cardiac conditions Diagnostic results - Labs from August: Electrolytes, kidney function tests, liver enzymes, cholesterol levels, and CBC ? normal - Colonoscopy in 2021: Polyp removed, follow-up in 2026 - Fasting blood glucose was 103, indicating prediabetic status Patient Instructions - Continue with current medication regimen - Vitamin D supplementation with 1000 units daily - Maintain regular visits to monitor the side effects of atorvastatin - Follow-up with vaccinations at a pharmacy - Avoid picking at skin affected by scally rash - Consider lifestyle changes to manage prediabetes and reduce smoking - start Fosamax, stay up right for 30 min after, take on empty stomach once a week - stop smoking - f/u 3 M since fosmax started and to f.u on smoking Orders: Orders Vitamin D 25-OH (D2 and D3) Today M81.0 - Age-related osteoporosis without current pathological fracture Complete Blood Count Auto Diff Today F17.200 - Nicotine dependence, unspecified, uncomplicated, I42.9 - Cardiomyopathy, unspecified, I49.3 - Ventricular premature depolarization, M25.473 - Effusion, unspecified ankle, M81.0 - Age-related osteoporosis without current pathological fracture, R73.01 - Impaired fasting glucose, Z00.01 - Encounter for general adult medical examinati on with abnormal findings Comprehensive [place]. Panel Fast Today F17.200 - Nicotine dependence, unspecified, uncomplicated, I42.9 - Cardiomyopathy, unspecified, I49.3 - Ventri cular premature depolarization, M25.473 - Effusion, unspecified ankle, M81.0 - Age-related osteoporosis without current pathological fracture, R73.01 - Impaired fasting glucose, Z00.01 - Encounter for general adult medical examination with abnormal findings Lipid Panel Today F17.200 - Nicotine dependence, unspecified, uncomplicated, I42.9 - Cardiomyopathy, unspecified, I49.3 - Ventricular premature depolarization, M25.473 - Effusion, unspecified ankle, M81.0 - Age-related osteoporosis without current pathological fracture, R73.01 - Impaired fasting glucose, Z00.01 - Encounter for general adult medical examination with abnormal findings TSH reflex Free T4 Today M81.0 - Age-related osteoporosis without current pathological fracture Medications: New alendronate (Fosamax) 70 mg PO QWEEK 90 days 13 tabs 0RF
[2024-11-28 09:18] VITALS: BP 110/72; PULSE 74; TEMP 36.9; O2SAT 96; BMI 21.5
== END 2024-11-28 09:56 | disposition home or self-care (01) ==
LOC: HO.HMCC 09:14
PROVIDERS: PCP Internal Medicine; Visit Provider Internal Medicine
DX: Z00.01 Encounter for general adult medical examination with abnormal findings (principal); I42.9 Cardiomyopathy, unspecified; M81.0 Age-related osteoporosis without current pathological fracture; F17.200 Nicotine dependence, unspecified, uncomplicated; M25.471 Effusion, right ankle; I49.3 Ventricular premature depolarization; R73.01 Impaired fasting glucose; L21.9 Seborrheic dermatitis, unspecified

== ENCOUNTER → 2024-11-28 09:13 | Outpatient (BNVA) | payer MEDICARE, SELFPAY | PROVIDERS: PCP Internal Medicine; Visit Provider Internal Medicine | DX: Z00.01 Encounter for general adult medical examination with abnormal findings (principal); M25.471 Effusion, right ankle; M81.0 Age-related osteoporosis without current pathological fracture; F17.210 Nicotine dependence, cigarettes, uncomplicated; I49.3 Ventricular premature depolarization; I42.9 Cardiomyopathy, unspecified; R73.01 Impaired fasting glucose; L21.9 Seborrheic dermatitis, unspecified | CPT/HCPCS: 96127; 99212; 99397 ==

== ENCOUNTER 2025-05-25 06:02 | Outpatient (REF) | payer MEDICARE, SELFPAY ==
[2025-05-25 10:48] LABS: MANUAL DIFF FLAG NO
[2025-05-25 11:12] LABS: Hematocrit 42.8 % (37.0-47.0); Hemoglobin 14.1 g/dl (12.0-16.0); Imm Gran Abs Auto 0.04 X10*3/uL (0.00-0.03); Imm Gran Pct Auto 0.4 % (0.0-0.4); Lymphocytes Absolute Auto 4.0 X10*3/uL (1.2-4.9); Mean Corpuscular HGB Conc 32.9 g/dl (31.0-35.0); Mean Corpuscular Hemoglobin 30.5 pg (27.0-33.0); Mean Corpuscular Volume 92.6 fL (80.0-98.0); NRBC Abs Auto 0.000 X10*3/uL (0.0-0.012); NRBC Pct Auto 0.0 /100WBC (0.0-0.2); Platelet Count 285 X10*3/uL (160-400); Red Blood Count 4.62 X10*6/uL (4.20-5.50); White Blood Count 11.1 X10*3/uL (4.8-10.8)
[2025-05-25 11:36] LABS: Alanine Aminotransferase 21 U/L (0-31); Albumin Level 4.3 g/dL (3.5-5.0); Alkaline Phosphatase 115 U/L (39-117); Anion Gap 11 (12-20); Aspartate Amino Transferase 30 U/L (5-31); Blood Urea Nitrogen 17 mg/dL (9-16); Calcium 9.3 mg/dL (8.4-10.2); Carbon Dioxide 24 mmol/L (22-29); Chloride 111 mmol/L (96-108); Cholesterol 116 mg/dL (<200); Estimated Glomerular Filt Rate > 60; HDL Cholesterol 30 mg/dL (>40); Potassium 4.6 mmol/L (3.3-5.1); Sodium 141 mmol/L (135-145); Total Protein 6.8 g/dL (6.5-8.0); Triglycerides 105 mg/dL (<150)
[2025-05-29 11:24] LABS: Vitamin D 25-OH, D2 <4 ng/mL; Vitamin D 25-OH, D3 28 ng/mL; Vitamin D 25-OH, Total 28 ng/mL (30-100)
== END 2025-05-25 06:03 | disposition home or self-care (01) ==
LOC: HO.HMGCLDS 06:02
PROVIDERS: PCP Internal Medicine; Visit Provider Internal Medicine
DX: Z00.01 Encounter for general adult medical examination with abnormal findings (principal); M81.0 Age-related osteoporosis without current pathological fracture; I42.9 Cardiomyopathy, unspecified; I49.3 Ventricular premature depolarization; R73.01 Impaired fasting glucose; M25.473 Effusion, unspecified ankle; F17.200 Nicotine dependence, unspecified, uncomplicated; Z13.6 Encounter for screening for cardiovascular disorders; Z13.29 Encounter for screening for other suspected endocrine disorder
CPT/HCPCS: 36415; 80053; 80061; 82306; 84443; 85025

== ENCOUNTER 2025-05-27 08:32 | Outpatient (AMB) | payer MEDICARE, SELFPAY ==
[2025-05-27 08:34] VITALS: BP 122/78; PULSE 73; O2SAT 98; BMI 21.6
--- NOTE | 2025-05-27 08:34 | A.OFFPC_ITS ---
Vital Signs 05/27/25 08:34 Height 5 ft 3 in Weight 122 lb BMI 21.6 BP 122/78 Blood Pressure Location Lt brachial Position Sitting Pulse 73 Pulse Source Pulse Oximeter Pulse Oximetry (%) 98 Intake Visit Reasons: 3m f/u Reschedule - see comments Allergies No Known Allergies Allergy (Verified 05/27/25 08:34) Medication List - Last Reconciled 05/27/25 by Norman Suh MD alendronate (Fosamax) 70 mg PO QWEEK 90 days alprazolam 0.25 mg PO DAILY PRN 15 days aspirin (Adult Low Dose Aspirin) 81 mg PO DAILY 90 days atorvastatin 80 mg PO QPM clobetasol 0.05% 1 appl topical DAILY 2 weeks metoprolol succinate ER 25 mg PO DAILY Tobacco use date assessed: 05/27/25 Fall risk assessment: No Falls in past year Last assessed Fall Risk: 05/27/25 Dental Screening Dental Screen Date: 05/27/25 Did you have a dental visit in the last 12 months?: Yes Did you have a dental problem in the last 6 months where you did not have access to dental care?: No Was dental information given to patient?: Patient has dentist HPI HPI Comments History of Present Illness Details History of Present Illness The patient is a 69 year old individual presenting for a follow-up visit for management of multiple chronic conditions and medication refills. Anxiety: - The patient reports that anxiety is a lright but can increase at times due to multiple stressors, including family matters like a daughter moving, renting an apartment, and worrying about grandchildren. - The patient sometimes feels the anxiet y in the stomach. - The patient takes alprazolam on an as- needed basis, having used it only four or five times, and confirms it is effective when taken. Cardiovascular Disease: - The patient has diagnoses of nonobstru ctive coronary artery disease, frequent PVCs, and mild cardiomyopathy. - A Holter monitor was previously used, which revealed no significant issues. - An echocardiogram in November 2023 showed an ejection fraction of 40-45%. - The patient denies feeling any palpita tions - The patient is scheduled for a follow- up with cardiology in August, one year after the last visit. Seborrheic Dermatitis: - The patient has a history of scalp pso riasis, now identified as seborrheic dermatitis, which also affects the ears. - The scalp is described as very flaky a nd embarrassing. - Head and Shoulders shampoo was ineffec tive. - The patient was prescribed clobetasol solution at a walk-in clinic, which has been effective. Tobacco Use Disorder: - The patient continues to smoke and is currently smoking about three-quarters of a pack per day. - The patient acknowledges the difficult y in quitting and is working on it, especially after learning it can worsen osteoporosis. Osteoporosis and Back Pain: - The patient has a diagnosis of osteopo rosis, confirmed by a bone density scan in August of the previous year, which showed a T-score of -2.7. - The patient reports significant back p ain, described as screaming, which is exacerbated by lifting a grandchild. - The back pain can also occur with mini mal activity, such as folding laundry, requiring the patient to sit down. - The patient recently experienced sharp pain after coughing, which is still present. Hearing Difficulty and Cerumen Impaction: - The patient reports being hard of hear ing, with one ear being worse than the other. - The patient has a family history of he aring aid use in old age. - The patient has used ear drops intermi ttently, about once a month, for a blocked sensation. Leukocytosis: - Recent lab results showed an elevated white blood cell count, which was noted to be normal on the last check. - we will repeat it again before next vi sit Medical History: - Nonobstructive coronary artery disease - Frequent premature ventricular contrac tions (PVCs) - Mild cardiomyopathy, with an ejection fraction of 40-45% in November 2023 - Hyperlipidemia - Anxiety - Osteoporosis, with a T-score of -2.7 i n August of the previous year - Seborrheic dermatitis of the scalp Social History: - Tobacco Use: The patient smokes approx imately three-quarters of a pack of cigarettes per day. - Stressors: Reports significant stress related to family matters, including a daughter moving, needing to rent out an apartment, and worrying about grandchildren. 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 Family History: - Hearing loss: The patient's mother and other family members used hearing aids due to age-related hearing loss. Diagnostic Results: - Bone Density Scan (August of last year) : Showed a T-score of -2.7, consistent with osteoporosis. [facility] Medical History Smoker CAD (coronary artery disease) Lipid disorder Surgical History Hx of tubal ligation H/O colonoscopy (~08/2021) Family History Father Colon cancer Sister Breast cancer Family/Other Breast cancer Social History Housing: House Patient Tobacco Use Status: Current everyday Tobacco user Tobacco use type: Cigarette Cigarette Packs Per Day: 1 Cigarettes Per Day: 20.0 Years Smoked: 30 years e-Cigarette/Vaping Use: Never Used Current occupational status: unemployed Cognitive needs: No Hearing needs: No Vision needs: Yes Female Reproductive History Menstrual Age of Menarche: 13 Questionnaire Thrive Questionnaire Date Thrive assessed: 11/21/24 I am a: Patient What is your living situation today?: I have a steady place to live Within the past 12 months, did the food you bought not last and you didn't have the money to get more?: Never true Within the past 12 months, did you worry whether your food would run out before you got money to buy more?: Never true Do you have trouble paying for medicines?: No Do you have trouble getting transportation to medical appointments?: No Do you have trouble paying your heating and electricity bill?: No Do you have trouble taking care of your child, family member or friend?: No Do you have trouble with day-to-day activities such as bathing, preparing meals, shopping, managing finances, etc.?: No Are you currently unemployed and looking for a job?: No Are you interested in more education?: No Please select the resources that you would like help with: None Currently or been in a relationship where the following occur: No concerns reported THRIVE Score: 0 CORNELIA-7 AMB Questionnaire CORNELIA-7 Date CORNELIA - 7 assessed: 05/27/25 Feeling nervous, anxious, or on edge: 0 = Not at all Not being able to stop or control worryin = Not at all Worrying too much about different things: 0 = Not at all Trouble relaxin = Not at all Being so restless that it is hard to sit still: 0 = Not at all Becoming easily annoyed or irritable: 0 = Not at all Feeling afraid as if something awful might happen: 0 = Not at all Total CORNELIA-7 score (0-4 normal; 5-9 mild; 10-14 moderate; 15-21 severe): 0 Source: Developed by Drs. Justo Moise, Deana Zapata, Marc Stearns and colleagues, with an educational alex from [employer]. CORNELIA-7 Assessment Billing CORNELIA-7 Assessment Tool: CORNELIA-7 Assessment 59382 Review of Systems Narrative Review of Systems - General: No fever no chills - Neurological: No headaches no dizziness - Ear nose throat: No sore throat no hearing difficulty no ear pain - Cardiovascular: No syncope, no chest pain, no palpitations - Gastrointestinal: No nausea vomiting or diarrhea - Endocrine: No polyuria polydipsia no heat intolerance - Genitourinary: No dysuria , no blood in urine Physical exam (Primary Care) Vital Signs: Last Vital Signs Pulse 73 05/27/25 08:34 BP 122/78 05/27/25 08:34 Pulse Ox 98 05/27/25 08:34 BMI result Body Mass Index 21.6 Tobacco/Smoking Status: Tobacco use Status Tobacco use date assessed 05/27/25 05/27/25 08:34 Patient Tobacco Use Status Current everyday Tobacco 05/27/25 08:34 Tobacco use type Cigarette 05/27/25 08:34 e-Cigarette/Vaping Use Never Used 05/27/25 08:34 Thrive Assessment: Date of Thrive Assessment Date Thrive assessed 11/21/24 05/27/25 08:34 Currently or been in a relationship where the following occur: No concerns repo rted Narrative Physical Exam General: No acute distress HEENT: No acute findings, ear canal very narrow Neck: Supple Respiratory system: Able to talk in full sentences, no audible wheeze Cardiovascular: S1-S2 regular in rate and rhythm, frequent PVCs, mild cardiomyopathy, nonobstructive coronary artery disease Gastrointestinal: No pain Extremities: No new findings [employer]ICAL DESIGNER: Alert awake oriented x3 motor intact Skin: Normal turgor, seborrheic dermatitis of the scalp Coding Level of Care Code Complex visit Add On G2211 Diagnoses Leukocytosis, unspecified type D72.829 Leukocytosis type: unspecified Seborrheic dermatitis L21.9 Hard of hearing H91.90 Age related osteoporosis, unspecified pathological fracture presence M81.0 Osteoporosis type: age-related Presence of current pathological fracture: unspecified Tobacco dependence F17.200 Lipid disorder E78.9 PVCs (premature ventricular contractions) I49.3 Cardiomyopathy, unspecified type I42.9 Cardiomyopathy type: unspecified Impaired fasting blood sugar R73.01 Family history of hearing loss Z82.2 Chronic coronary microvascular dysfunction I25.85 Coronary Disease-Associated Artery/Lesion type: chronic coronary [place] rovascular dysfunction Upper back strain, sequela S29.012S Encounter type: sequela Additional Codes CORNELIA-7 Assessment Billing - CORNELIA-7 Assessment Tool: CORNELIA-7 Assessment [id number] ([id number]) Assessment & Plan Assessment & Plan (1) Leucocytosis: Code(s): D72.829 - Elevated white blood cell count, unspecified Category: Medical Qualifiers: Leukocytosis type: unspecified Qualified Code(s): D72.829 - Elevated white blood cell count, unspecified (2) Seborrheic dermatitis: Code(s): L21.9 - Seborrheic dermatitis, unspecified Category: Medical (3) Hard of hearing: Code(s): H91.90 - Unspecified hearing loss, unspecified ear Category: Medical (4) Osteoporosis: Code(s): M81.0 - Age-related osteoporosis without current pathological fracture Category: Medical Qualifiers: Osteoporosis type: age-related Presence of current pathological fracture: unspecified Qualified Code(s): M81.0 - Age-related osteoporosis without current pathological fracture (5) Tobacco dependence: Code(s): F17.200 - Nicotine dependence, unspecified, uncomplicated Category: Medical (6) Lipid disorder: Code(s): E78.9 - Disorder of lipoprotein metabolism, unspecified Category: Medical (7) PVCs (premature ventricular contractions): Code(s): I49.3 - Ventricular premature depolarization Category: Medical (8) Cardiomyopathy: Code(s): I42.9 - Cardiomyopathy, unspecified Category: Medical Qualifiers: Cardiomyopathy type: unspecified Qualified Code(s): I42.9 - Cardiomyopathy, unspecified (9) Impaired fasting blood sugar: Code(s): R73.01 - Impaired fasting glucose Category: Medical (10) Family history of hearing loss: Code(s): Z82.2 - Family history of deafness and hearing loss Category: Medical (11) Coronary artery disease: Code(s): I25.10 - Atherosclerotic heart disease of [place] coronary artery without angina pectoris Category: Medical Qualifiers: Coronary Disease-Associated Artery/Lesion type: chronic coronary microvascular dysfunction Qualified Code(s): I25.85 - Chronic coronary microvascular dysfunction (12) Upper back strain: Code(s): S29.012A - Strain of muscle and tendon of back wall of thorax, initial encounter Category: Medical Qualifiers: Encounter type: sequela Qualified Code(s): S29.012S - Strain of muscle and tendon of back wall of thorax, sequela Plan Problem List - Anxiety - Nonobstructive coronary artery disease - Frequent premature ventricular contractions - Mild cardiomyopathy - Hyperlipidemia - Tobacco use disorder - Seborrheic dermatitis - Cerumen impaction - Osteoporosis - Back pain - Leukocytosis Plan - A prescription for clobetasol solution for seborrheic dermatitis will be sent. - The patient was instructed to apply clobetasol solution to the scalp overnight, starting three times a week and tapering down to twice a week, then once a week, and finally as needed once controlled. - It was recommended to continue using Head & Shoulders or ketoconazole shampoo for washing. - The patient will have a repeat blood test in approximately three months to recheck the white blood cell count. - The patient was advised to be careful with lifting due to osteoporosis and the risk of fracture. - Physical therapy was offered for back pain to strengthen back muscles, which the patient will consider after childcare responsibilities decrease. - The patient was instructed to use wax-softening ear drops nightly for one week prior to the next appointment to allow for ear lavage. - The patient's cardiology follow-up is scheduled for August. - The patient will follow up in the clinic in August. Orders: Orders Complete Blood Count Auto Diff 2 Months D72.829 - Elevated white blood cell count, unspecified, E78.9 - Disorder of lipoprotein metabolism, unspecified, I49.3 - Ventricular premature depolarization, M81.0 - Age-related osteoporosis without current pathological fracture, R73.01 - Impaired fasting glucose Comprehensive Met. Panel 2 Months D72.829 - Elevated white blood cell count, unspecified, E78.9 - Disorder of lipoprotein metabolism, unspecified, I49.3 - Ventricular premature depolarization, M81.0 - Age-related osteoporosis without current pathological fracture, R73.01 - Impaired fasting glucose Medications: Changed From clobetasol 0.05% apply to area of scalp affected x 2 weeks. Leave in x 15 minutes then rinse off. Avoid groin, axilla, eyes 1 appl topical DAILY 2 weeks 25 mL 0RF To clobetasol 0.05% 1 appl topical DAILY 25 mL 1RF 2 weeks
== END 2025-05-27 08:57 | disposition home or self-care (01) ==
LOC: HO.HMCC 08:33
PROVIDERS: PCP Internal Medicine; Visit Provider Internal Medicine
DX: D72.829 Elevated white blood cell count, unspecified (principal); L21.9 Seborrheic dermatitis, unspecified; H91.90 Unspecified hearing loss, unspecified ear; M81.0 Age-related osteoporosis without current pathological fracture; F17.200 Nicotine dependence, unspecified, uncomplicated; E78.9 Disorder of lipoprotein metabolism, unspecified; I49.3 Ventricular premature depolarization; I42.9 Cardiomyopathy, unspecified; R73.01 Impaired fasting glucose; Z82.2 Family history of deafness and hearing loss; I25.85 Chronic coronary microvascular dysfunction; S29.012S Strain of muscle and tendon of back wall of thorax, sequela

== ENCOUNTER → 2025-05-27 08:32 | Outpatient (BNVA) | payer MEDICARE, SELFPAY | PROVIDERS: PCP Internal Medicine; Visit Provider Internal Medicine | DX: M81.0 Age-related osteoporosis without current pathological fracture (principal); D72.829 Elevated white blood cell count, unspecified; L21.9 Seborrheic dermatitis, unspecified; H91.90 Unspecified hearing loss, unspecified ear; F17.210 Nicotine dependence, cigarettes, uncomplicated; E78.9 Disorder of lipoprotein metabolism, unspecified; I49.3 Ventricular premature depolarization; I42.9 Cardiomyopathy, unspecified; R73.01 Impaired fasting glucose; I25.85 Chronic coronary microvascular dysfunction; S29.012D Strain of muscle and tendon of back wall of thorax, subsequent encounter; Z82.2 Family history of deafness and hearing loss | CPT/HCPCS: 96127; 99212 ==